=== PATIENT | male | born 1985 | race Caucasian/White ===

== ENCOUNTER 2022-09-01 10:22 | Outpatient (REF) | payer BC, SELFPAY ==
[2022-09-01 14:13] LABS: MANUAL DIFF FLAG NO
[2022-09-01 14:24] LABS: Basophils Percent Auto 0.5 % (0-2); Eosinophils Absolute Auto 0.2 X10*3/uL (0.0-0.4); Eosinophils Percent Auto 2.1 % (0-4); Hematocrit 44.4 % (42.0-52.0); Hemoglobin 15.1 g/dl (14.0-18.0); Imm Gran Abs Auto 0.03 X10*3/uL (0.00-0.03); Imm Gran Pct Auto 0.4 % (0.0-0.4); Lymphocytes Absolute Auto 1.4 X10*3/uL (1.2-4.9); Lymphocytes Percent Auto 17.1 % (20-40); Mean Corpuscular Hemoglobin 30.6 pg (27.0-33.0); Mean Corpuscular Volume 89.9 fL (80.0-98.0); Mean Platelet Volume 10.1 fL (9.4-12.4); Monocytes Absolute Auto 0.5 X10*3/uL (0.1-1.2); Monocytes Percent Auto 6.5 % (2-11); Neutrophils Percent Auto 73.4 % (45-73); Platelet Count 191 X10*3/uL (160-400); Red Blood Count 4.94 X10*6/uL (4.60-5.80); Red Cell Distribution Width 13.9 % (11.0-16.0); White Blood Count 8.1 X10*3/uL (4.8-10.8)
[2022-09-01 14:43] LABS: INTERNATIONAL NORM RATIO 0.9 (0.9-1.1); Prothrombin Time 9.8 SEC (10.0-13.1)
[2022-09-01 14:46] LABS: Partial Thromboplastin Time 28.6 SEC (26.0-36.4)
[2022-09-01 15:06] LABS: Erythrocyte Sedimentation Rate 8 MM/HR (0-15)
[2022-09-01 15:20] LABS: Folate 7.3 ng/mL (> or = 4.0); Vitamin B12 1030 pg/mL (200-900)
[2022-09-01 16:21] LABS: Alanine Aminotransferase 109 U/L (0-40); Albumin Level 4.8 g/dL (3.5-5.0); Alkaline Phosphatase 98 U/L (39-117); Amylase 102 U/L (28-100); Anion Gap 21 (12-20); Aspartate Amino Transferase 120 U/L (5-37); Bilirubin Direct 0.2 mg/dL (0.0-0.5); Bilirubin Total 0.5 mg/dL (0.0-1.0); Blood Urea Nitrogen 9 mg/dL (9-16); C Reactive Protein 0.54 mg/dL (< or = 0.50); Carbon Dioxide 21 mmol/L (22-29); Chloride 100 mmol/L (96-108); Estimated Glomerular Filt Rate > 60; Free T4 (Free Thyroxine) 0.78 ng/dL (0.71-1.85); Gamma Glutamyl Transpeptidase 235 U/L (11-51); Glucose Random 83 mg/dL (60-115); Lipase 21 U/L (8-78); Sodium 138 mmol/L (135-145); Thyroid Stimulating Hormone 0.91 uIU/mL (0.32-4.0); Vitamin D 25-OH Total 16.3 ng/mL (>30)
[2022-09-07 16:37] LABS: Vitamin B1 10 nmol/L (8-30)
== END 2022-09-01 10:23 | disposition home or self-care (01) ==
LOC: HO.MANLDS 10:22
PROVIDERS: Visit Provider Physician Assistant
DX: F41.1 Generalized anxiety disorder (principal); R17 Unspecified jaundice; H57.13 Ocular pain, bilateral
CPT/HCPCS: 36415; 80053; 82150; 82248; 82306; 82607; 82746; 82977; 83690; 84425; 84439; 84443; 85025; 85610; 85652; 85730; 86140

== ENCOUNTER 2022-12-04 08:30 | Outpatient (RCR) | payer BC, SELFPAY | END 2023-02-16 06:59 | disposition home or self-care (01) | LOC: HO.OT 08:30 | PROVIDERS: PCP Internal Medicine; Visit Provider Orthopaedic Surgery | DX: M77.22 Periarthritis, left wrist (principal) | CPT/HCPCS: 97033; 97110; 97140; 97165 ==

== ENCOUNTER 2023-02-23 13:53 | Outpatient (RCR) | payer BC, SELFPAY | END 2023-05-16 11:26 | disposition home or self-care (01) | LOC: HO.OT 13:53 | PROVIDERS: PCP Internal Medicine; Visit Provider Orthopaedic Surgery | DX: M12.532 Traumatic arthropathy, left wrist (principal); Z98.890 Other specified postprocedural states | CPT/HCPCS: 97110; 97166 ==

== ENCOUNTER 2023-05-28 09:43 | Outpatient (REF) | payer OTHER, SELFPAY ==
[2023-05-28 13:28] LABS: INTERNATIONAL NORM RATIO 0.9 (0.9-1.1); Prothrombin Time 10.6 SEC (11.1-13.3)
[2023-05-28 14:04] LABS: Alanine Aminotransferase 32 U/L (0-40); Albumin Level 4.5 g/dL (3.5-5.0); Alkaline Phosphatase 59 U/L (39-117); Amylase 109 U/L (28-100); Anion Gap 17 (12-20); Aspartate Amino Transferase 36 U/L (5-37); Bilirubin Total 0.3 mg/dL (0.0-1.0); Blood Urea Nitrogen 10 mg/dL (9-16); Calcium 9.9 mg/dL (8.4-10.2); Carbon Dioxide 22 mmol/L (22-29); Chloride 106 mmol/L (96-108); Estimated Glomerular Filt Rate > 60; Gamma Glutamyl Transpeptidase 118 U/L (11-51); Glucose Random 76 mg/dL (60-115); Sodium 141 mmol/L (135-145); Total Protein 7.6 g/dL (6.5-8.0)
[2023-06-02 10:28] LABS: Vitamin B1 15 nmol/L (8-30)
== END 2023-05-28 09:44 | disposition home or self-care (01) ==
LOC: HO.MANLDS 09:43
PROVIDERS: Visit Provider Physician Assistant
DX: F10.99 Alcohol use, unspecified with unspecified alcohol-induced disorder (principal)
CPT/HCPCS: 36415; 80053; 82150; 82977; 84425; 85610

== ENCOUNTER 2023-07-09 09:13 | Outpatient (REF) | payer OTHER, SELFPAY ==
--- NOTE | ~2023-07-09 | US_ITS ---
EXAMINATION: US ABDOMEN COMPLETE CLINICAL INFORMATION: Elevated LFTs. COMPARISON: None available. TECHNIQUE: Real-time imaging of the abdominal viscera. FINDINGS: PANCREAS: Head and body are unremarkable, tail is obscured. ABDOMINAL AORTA: The proximal, mid, and distal segments are normal in caliber. INFERIOR VENA CAVA: Visualized portions are normal. LIVER: Liver is enlarged measuring 18 cm in of diffusely increased echogenicity. No focal hepatic lesion. There is no intrahepatic biliary duct dilatation seen. GALLBLADDER: Normal. The gallbladder is physiologically distended without evidence of stones, sludge, polyps, wall thickening or pericholecystic fluid. COMMON BILE DUCT: Normal in caliber measuring 0.2 cm in diameter. RIGHT KIDNEY: Prominent renal pyramids. No hydronephrosis. No renal calculi or focal parenchymal lesions. The kidney measures 12.1 cm in maximum dimension. LEFT KIDNEY: Lobulated contour with prominent renal pyramids. No hydronephrosis. No renal calculi or focal parenchymal lesions. The kidney measures 12.0 cm in maximum dimension. SPLEEN: Normal. The spleen measures 10.8 cm in maximum dimension. FREE FLUID: None. US/US abdomen complete IMPRESSION: Enlarged fatty liver.
== END 2023-07-09 09:14 | disposition home or self-care (01) ==
LOC: HO.US 09:13
PROVIDERS: PCP Internal Medicine; Visit Provider Physician Assistant
DX: R74.01 Elevation of levels of liver transaminase levels (principal)
CPT/HCPCS: 76700

== ENCOUNTER 2023-08-13 08:15 | Emergency (ER) | payer OTHER, SELFPAY ==
--- NOTE | ~2023-08-13 | XR_ITS ---
EXAMINATION: XR WRIST, LEFT CLINICAL INFORMATION: Left wrist injury. COMPARISON: None available. TECHNIQUE: PA, lateral, oblique, and scaphoid views of the left wrist. FINDINGS: Postsurgical change consistent with resection of the scaphoid, lunate, and triquetral bones. Corticated ossification adjacent to the pisiform which appears chronic. No acute fracture or dislocation. No concerning lytic or blastic osseous lesion. Surgical maximilian adjacent to the distal radius. Circumferential soft tissue swelling. XR/XR wrist LT min 3V IMPRESSION: 1. Circumferential soft tissue swelling without acute fracture or dislocation. 2. Postsurgical change consistent with resection of the scaphoid, lunate, and triquetral bones.
[2023-08-13 08:34] VITALS: BP 146/72; PULSE 80; RESP 18; TEMP 36.7; O2SAT 96; BMI 25.8
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
[2023-08-13 10:33] LABS: MANUAL DIFF FLAG NO
[2023-08-13 10:34] LABS: Basophils Absolute Auto 0.1 X10*3/uL (0.0-0.2); Basophils Percent Auto 0.5 % (0-2); Eosinophils Absolute Auto 0.2 X10*3/uL (0.0-0.4); Eosinophils Percent Auto 1.5 % (0-4); Hematocrit 43.8 % (42.0-52.0); Hemoglobin 14.9 g/dl (14.0-18.0); Imm Gran Abs Auto 0.03 X10*3/uL (0.00-0.03); Imm Gran Pct Auto 0.3 % (0.0-0.4); Lymphocytes Absolute Auto 2.4 X10*3/uL (1.2-4.9); Mean Corpuscular Hemoglobin 30.8 pg (27.0-33.0); Mean Corpuscular Volume 90.7 fL (80.0-98.0); Mean Platelet Volume 9.4 fL (9.4-12.4); Monocytes Absolute Auto 0.8 X10*3/uL (0.1-1.2); Monocytes Percent Auto 7.7 % (2-11); Neutrophils Absolute Auto 6.9 x10*3/uL (2.0-8.3); Platelet Count 266 X10*3/uL (160-400); Red Blood Count 4.83 X10*6/uL (4.60-5.80); Red Cell Distribution Width 13.8 % (11.0-16.0); White Blood Count 10.3 X10*3/uL (4.8-10.8)
[2023-08-13 11:05] LABS: Anion Gap 18 (12-20); Blood Urea Nitrogen 13 mg/dL (9-16); C Reactive Protein 3.81 mg/dL (< or = 0.50); Calcium 10.1 mg/dL (8.4-10.2); Carbon Dioxide 23 mmol/L (22-29); Chloride 102 mmol/L (96-108); Estimated Glomerular Filt Rate > 60; Glucose Random 86 mg/dL (60-115); Potassium 4.2 mmol/L (3.3-5.1); Sodium 139 mmol/L (135-145)
[2023-08-13 11:14] LABS: Erythrocyte Sedimentation Rate 16 MM/HR (0-15)
== END 2023-08-13 11:36 | disposition home or self-care (01) ==
PROVIDERS: Registered Nurse Emergency; Emergency Provider Emergency Medicine; PCP Internal Medicine
DX: L03.114 Cellulitis of left upper limb (principal); M25.532 Pain in left wrist
CPT/HCPCS: 36415; 73110; 80048; 85025; 85652; 86140; 99283

== ENCOUNTER 2024-03-31 10:54 | Outpatient (REF) | payer OTHER, SELFPAY ==
[2024-03-31 12:22] LABS: Alanine Aminotransferase 181 U/L (0-40); Albumin Level 4.6 g/dL (3.5-5.0); Alkaline Phosphatase 96 U/L (39-117); Anion Gap 16 (12-20); Aspartate Amino Transferase 187 U/L (5-37); Bilirubin Total 0.4 mg/dL (0.0-1.0); Blood Urea Nitrogen 10 mg/dL (9-16); Calcium 9.9 mg/dL (8.4-10.2); Carbon Dioxide 26 mmol/L (22-29); Chloride 102 mmol/L (96-108); Cholesterol 286 mg/dL (<200); Estimated Glomerular Filt Rate > 60; Glucose Random 126 mg/dL (60-115); HDL Cholesterol 67 mg/dL (>40); LDL Cholesterol Calculated 198 mg/dL (<100); Sodium 140 mmol/L (135-145); Total Protein 7.8 g/dL (6.5-8.0); Triglycerides 107 mg/dL (<150)
[2024-03-31 12:52] LABS: HBS Num1 16.41 mIU/mL (0-7.99); HBc Num1 0.12 S/CO (0.00-0.79); HBsAGNum1 0.34 S/CO (0.00-0.99); Hepatitis B Core Antibody Nonreactive (Nonreactive); Hepatitis B Surface Antigen Negative (Negative); ~Hepatitis B Surface Antibody REACTIVE (Nonreactive)
[2024-04-01 15:23] LABS: HCV RNA PCR Qn <1.18 NOT DETECTED Log IU/mL (NOT DETECTED); HCV RNA PCR Qn <15 NOT DETECTED IU/mL (NOT DETECTED)
== END 2024-03-31 10:55 | disposition home or self-care (01) ==
LOC: HO.LAB 10:54
PROVIDERS: PCP Internal Medicine; Visit Provider Internal Medicine
DX: Z00.00 Encounter for general adult medical examination without abnormal findings (principal); F10.10 Alcohol abuse, uncomplicated; F32.9 Major depressive disorder, single episode, unspecified; G47.00 Insomnia, unspecified
CPT/HCPCS: 36415; 80053; 80061; 86704; 86706; 87340; 87522

== ENCOUNTER 2024-08-26 13:29 | Outpatient (AMB) | payer MEDICAID, SELFPAY ==
--- NOTE | 2024-08-26 14:06 | MHC.AM.SUB ---
Vital Signs 08/26/24 16:22 Weight 146 lb 4 oz Position Sitting Respiration 19 Pulse 99 Pulse Source Pulse Oximeter Pulse Oximetry (%) 98 Oxygen Delivery Method Room Air Intake Visit Reasons: Intake Allergies No Known Allergies Allergy (Verified 08/13/23 08:34) HPI HPI Intake: Details: Patient presents for evaluation and treatment of alcohol use disorder He reports he is drinking btwn 10-20 nips daily weaned over a week in July and stopped drinking for 6 days In terms of withdrawal sx., he reports tremor (while in treatment) diaphoresis vomiting every morning --settles after 3 nips Substance use history: -obtained by RN, reviewed with patient He started drinking at age 18 and at age 24, it became problematic. cocaine I buy a 20 here and there used 2x this month [place] Denies any injection use Treatment: -naltrexone (4 days ago). Does not like to take it when he is drinking because he becomes very flushed and my skin looks terrible -vivitrol injection last injection in June ([facility]) -[place] Denies medical admissions related to AUD reports fatty liver --elevated liver enzymes Sertraline 100mg QD MVI strong family history of alcohol goals: I don't want to be a slave to it anymore Review of Systems Const Reports as per HPI, Reports difficulty sleeping, Reports headache(s), Reports lethargy and Reports poor appetite ENT Reports headache(s) Neuro Reports headache(s) Psych Reports anxiety, Reports depression, Reports hopelessness, Reports irritability and Denies suicidal ideation Physical Exam Vital Signs: Last Vital Signs Pulse 99 08/26/24 16:22 Resp 19 08/26/24 16:22 Pulse Ox 98 08/26/24 16:22 Oxygen Delivery Method Room Air 08/26/24 16:22 Const General: cooperative, alert, awake and anxious Nutritional Appearance: average body habitus Orientation/consciousness: patient oriented x3 Limitations: no limitations Skin Other: face very red Neuro General: patient oriented x3 Psych Appearance: grossly normal Speech and movement: Pressured speech present Affect: Animated affect present and Anxious affect present Attitude: cooperative Thought process: Circumstantial thought process present Thought content: Normal thought content present Insight: Fair insight present (Psych) Judgement: Fair judgement present (Psych) Quality Reporting (2019) Depression/Bipolar (159/160/161/177) PHQ-9: Total score: 21 Assessment & Plan Assessment & Plan (1) Alcohol use disorder, severe, dependence: Code(s): F10.20 - Alcohol dependence, uncomplicated Category: Medical Plan: patient will start to decrease drinks as tolerated encouraged not to decrease by too many too fast to avoid worsening withdrawal sx encouraged to eat and drink water as much as possible follow up one week naltrexone on hold per patient request risk reduction related to cocaine --overdose prevention Orders: Orders AMB 14 Panel Urine Drug Screen 08/26/24 Z51.81 - Encounter for therapeutic drug level monitoring MAT Intake Nursing Intake Reason for visit: AUD Are you currently using?: Yes What are you taking?: Alcohol and occasionally cocaine When was your last use?: Drank this morning How much?: >20 nips a day What is your source of income?: Unemployed What is your current relationship status?: Lives with a girlfriend Current PCP: [facility] primary Date of last visit: January of this past year Referral Source: [facility] Details: Patient was looking for [facility] [place] who let him know he had to be detoxed prior to going there they reffered him to us. Substance Abuse History Substance Abuse History (includes route, frequency and quantity): Cocaine (states last use was 2-3 weeks ago) Social History Domestic Violence concerns: denies Children: Yes 2 biological and 1 step child Do you have a support system?: States his girlfriend who is also struggling with AUD Current mode of transportation?: Drives Where are you currently residing?: [place] LMP: N/A IV Drug Use Have you ever shared needles?: No Have you ever belonged to a needle exchange program?: No Do you buy needles at a pharmacy?: No Have you ever overdosed?: No Have you ever been hospitalized for an overdose?: No Was Naloxone administered?: Not applicable Recovery History Have you had any periods of recovery?: Yes What is your longest time in recovery?: 28 days while in recovery When was the last time you were in recovery?: Last November Have you ever had inpatient treatment for your substance abuse disorder?: Yes Have you been in an inpatient detoxification program?: Yes Have you been in an inpatient Rehab/[facility] house?: No Have you been in an outpatient Methadone Maintenance program?: No Have you been in an outpatient Suboxone Maintenance program?: No Have you been in an AA/NA support program?: No Have you had a Recovery Support Tear Down Man?: Yes Have you had Peer Support?: Yes Details: Kevin states I would love an older gentleman to guide me Behavioral Health History Do you have a current provider? If so, who?: No diagnosis: ADHD and Bipolar History of self harming thoughts?: No History of homicidal or suicidal intentions?: No Medical Conditions Do you have any chronic pain conditions?: States he had a surgical procedure on his left hand years ago that causes him both pain and depression Legal History Details: Patient did not disclose PHQ-9 Over the last 2 weeks, how often have you been bothered by any of the following problems? 1. Little interest or pleasure in doing things: nearly every day 2. Feeling down, depressed, or hopeless: nearly every day 3. Trouble falling or staying asleep, or sleeping too much: nearly every day 4. Feeling tired or having little energy: nearly every day 5. Poor appetite or overeating: nearly every day 6. Feeling bad about yourself - or that you are a failure or have let yourself or your family down: nearly every day 7. Trouble concentrating on things, such as reading the newspaper or watching television: nearly every day 8. Moving or speaking so slowly that other people could have noticed. Or the opposite - being so fidgety or restless that you have been moving around a lot more than usual: not at all 9. Thoughts that you would be better off or of hurting yourself in some way: not at all Total score: 21 Depression Screening Interpretation: Positive Depression Screening Done: Yes 43384 - PHQ-9 Billing: Yes Source: Developed by Drs. Franco Abdul, Ankita Fuchs, Dhaval Hewitt and colleagues, with an educational katt from [employer]. MELISSA-7 AMB Questionnaire MELISSA-7 Date MELISSA - 7 assessed: 08/26/24 Feeling nervous, anxious, or on edge: 3 = Nearly every day Not being able to stop or control worryin = Nearly every day Worrying too much about different things: 3 = Nearly every day Trouble relaxin = Nearly every day Being so restless that it is hard to sit still: 3 = Nearly every day Becoming easily annoyed or irritable: 3 = Nearly every day Feeling afraid as if something awful might happen: 0 = Not at all Total MELISSA-7 score (0-4 normal; 5-9 mild; 10-14 moderate; 15-21 severe): 18 Source: Developed by Drs. Franco Abdul, Ankita Fuchs, Dhaval Hewitt and colleagues, with an educational katt from [employer] MELISSA-7 Assessment Billing MELISSA-7 Assessment Tool: MELISSA-7 Assessment 17599
--- OUTSIDE RECORDS SUMMARY | 2024-08-26 15:46 | XMS_ITS | Data Portability ---
Author Organization [facility] Office Address [address] [facility] [address] [place] [address] Care Team Providers Care Food Consultant Name Role Phone SILVA MAIER Primary Care Provider [phone] Assessment No assessment recorded. Plan of Treatment Reminders Order Date Submit Date Provider Last Modified By Organization Details Last Modified Time Details Appointments None record ed. Lab None record ed. Referral None record ed. Procedures None record ed. Surgeries None record ed. Imaging None record ed. Medication Orders None record ed. Patient TargetsNo targets recorded. Patient Instructions Encounter Date Encounter Id Patient Instructions Last Modified By Organization Details Last Modified Time 05/07/2023 [id number] Educational materials are supplied regarding diagnoses & management Not available 05/07/2023 08:40:49 The findings, diagnosis, and options are discussed including potential treatments. I reviewed additional surgery options of denervation, wrist fusion and wrist arthroplasty. I advised against arthroplasty for him, discussed rationale and expectations. He favors plan for wrist denervation. All questions are answered. Follow up will be arranged with Dr. Lindquist He will call if problems or questions. Not available 05/07/2023 09:56:03 Reason for Referral None Reported. Procedures Surgical History Date Name Laterality Status Provider Name and Address Organization Details Recorded Time 2 Orthopaedic Surgery completed Genny ramos [facility] 05/07/2023 09:22:27 Imaging Results None recorded. Procedure Notes None recorded. Medical Equipment None Reported. Allergies No known drug allergies Medications Name Sig Start Date Stop Date Status Note LastModified by Organization Details LastModified Time sertraline active Not Available Not Av ailable Not Available Vitals Date Recorded Body height Body mass index (BMI) Body weight Provider Name and Address Organization Details Last Updated DateTime 05/07/2023 175.26 cm 25.8 kg/m2 83978.66 g Genny [facility] 05/07/2023 09:21:50 Social History None recorded. Functional Status None recorded. Mental Status None recorded. Family History Nothing Reported. 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 Chronic po stoperative pain 7847409063 03554 G89.28 Health Concerns Section Related Observation LastModified by Organization Detai ls LastModified Time None Recorded Concern Status LastModified by Organization Details LastModified Time None Recorded Advance Directives Directive None Recorded Payers Encounter Date Sequence Insurance Name Policy Number Policy Balbuena Covered Member ID Balbuena Member ID Guarantor Name 05/07/2023 1 MEDICAID-[place]: [facility] Shoaib Chatterjee III [id number] Shoaib Chatterjee Notes Date Note Type Note Provider Name and Address Organization Details Recorded Time 05/07/2023 text/html The patient is seen today for re evaluation of left wrist pain. Reported onset past year, noted diagnosis of prior wrist scaphoid injury and cyst. He has treated with Dr. Lindquist at [facility]. He underwent surgery 07/18/2022 for PRC and cyst excision. 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 No prior history of trauma is noted. Consultation is requested. AVRIL JEFFRIES MD [address] [place] [address], [place], [address], [facility] 05/07/2023 09:56:09
--- OUTSIDE RECORDS SUMMARY | 2024-08-26 15:46 | XMS_ITS | Continuity of Care Document ---
Author Organization [facility] Address [address] [place] [address] [address] [place] [address]- Care Team Providers Care Bicycle Racer Name Role Phone Robin Beatty DO Primary Care Physician Encounter [facility] Date(s): 07/21/24 - 08/20/24 [facility] [address] [place], [place] [address] Attending Physician: Admtr, [id number] Admitting Physician: AdmtrDejuan Referring Physician: Admtr, [id number] Encounter Type: Triage Allergies, Adverse Reactions, Alerts No Known Allergies Immunizations Given and Recorded Vaccine Date Status Refusal Reason SARS-CoV-2 (COVID-19) mRNA-1273 vaccine 01/05/21 G iven SARS-CoV-2 (COVID-19) mRNA-1273 vaccine 12/08/20 G iven Medications ascorbic acid-collagen 30 mg-833.33 mg oral tablet 3 tablet, By Mouth, Daily, # 120 tablet, 0 Refills, Maintenance, 07/31/23 1:07:00 PM EST, Tablet, Partial fill upon patient request if the prescription is for a schedule II opioid drug. Start Date: 07/31/23 Status: Ordered Quantity: 120.0 Unit: tablet Repeat number: 1 ibuprofen 800 mg oral tablet 800 mg, 1, tablet, By Mouth, 3 times a day, PRN, # 30 tablet, Refills 0, Maintenance, for pain, 07/31/23 1:05:00 PM EST, Partial fill upon patient request if the prescription is for a schedule II opioid drug. Start Date: 07/31/23 Status: Ordered Quantity: 30.0 Unit: tablet Repeat number: 1 sertraline 100 mg oral tablet 1 tablet = 100 mg, By Mouth, Daily, # 30 tablet, 0 Refills, Maintenance, 07/31/23 1:05:00 PM EST, Tablet, Partial fill upon patient request if the prescription is for a schedule II opioid drug. Start Date: 07/31/23 Status: Ordered Quantity: 30.0 Unit: tablet Repeat number: 1 Xanax 1 mg oral tablet 1 tablet = 1 mg, By Mouth, Every 8 hours, PRN as needed for anxiety, 0 Refills, Maintenance, 07/31/23 1:06:00 PM EST, Partial fill upon patient request if the prescription is for a schedule II opioiddrug. Start Date: 07/31/23 Status: Ordered Repeat number: 1 Social History Social History Type Response Smoking Status 10 or more cigarette s (1/2 pack or more)/day in last 30 days;Former smoker, quit more than 30 days ago entered on: 05/12/24 Sex Sex Representation Male (finding) Patient Care team information Care Team Personnel Name: Robin Beatty DO Position: Reference Physician Member Role: PCP Address: [address] [place] [address] Internal Medicine [place], [place] [address] Telecom: Care Team Related Persons Name: JIGNESH NG Insurance Providers Guarantor name: NED LITTLE [employer] Plan Information #: 1 Payer: [employer] Member Number: NA Policy Number: NA Group Number: [id number]
--- OUTSIDE RECORDS SUMMARY | 2024-08-26 15:46 | XMS_ITS | Continuity of Care Document ---
Author Organization [facility] Gavin pranay Address [address] [place] [address] [address] [place] [address]- Care Team Providers Care Farmworker Bulbs Name Role Phone Robin Beatty DO Primary Care Physician Encounter [facility] Date(s): 07/14/24 - 08/13/24 [facility] [address] [place] [id number] Encounter Type: Triage Allergies, Adverse Reactions, Alerts [...] Position: Reference Physician Member Role: PCP Address: [address] [place] [address] Internal Medicine [address] Telecom: Care Team Related Persons Name: JIGNESH NG Insurance Providers Guarantor name: NED YINILVA Tingz Plan Information #: 1 Payer: [facility] [employer] Member Number: NA Policy Number: NA Group Number: [id number]
[2024-08-26 16:22] VITALS: PULSE 99; RESP 19; O2SAT 98
== END 2024-08-26 14:48 | disposition home or self-care (01) ==
PROVIDERS: PCP Internal Medicine; Visit Provider Nurse Practitioner Psychiatric/Mental Health
DX: F10.20 Alcohol dependence, uncomplicated (principal)
CPT/HCPCS: 99204

== ENCOUNTER → 2024-08-26 13:29 | Outpatient (BNVA) | payer MEDICAID, SELFPAY | PROVIDERS: PCP Internal Medicine; Visit Provider Nurse Practitioner Psychiatric/Mental Health | DX: F10.20 Alcohol dependence, uncomplicated (principal) | CPT/HCPCS: 96127; 99212 ==

== ENCOUNTER → 2024-09-05 13:48 | Outpatient (BNVA) | payer MEDICAID, SELFPAY | PROVIDERS: PCP Internal Medicine ==

== ENCOUNTER 2024-09-11 15:27 | Outpatient (AMB) | payer MEDICAID, SELFPAY ==
--- NOTE | 2024-09-11 15:38 | A.OFFVISCC_ITS ---
Intake Visit Reasons: MAT Office Allergies No Known Allergies Allergy (Verified 08/13/23 08:34) HPI HPI MAT Office: Details: Patient presents for follow up for AUD Reports he has been working on cutting down amoutn of alcohol Some days he is able to drink less and others, he states, he drink as much as I can . His GF is currently in [address] facility and his goal is to be done drinking before she is discharged from there. Discussed strategies, challenged patient on some self deprecating statements, encouraged him to be gentler with himself during this process Discussed ATS admission and patients belief that he is unable to remain in a treatment facility for any amount of time After some time, he was able to articulate that this is largely due to increasing anxiety and racing thoughts that come with not having alcohol on board Review of Systems Const Reports as per HPI, Reports difficulty sleeping, Reports lethargy and Reports poor appetite (when drinking ) Psych Reports anxiety, Reports depression and Reports anhedonia Physical Exam Const General: cooperative, alert, awake and anxious Nutritional Appearance: average body habitus Orientation/consciousness: patient oriented x3 Limitations: no limitations Neuro General: patient oriented x3 Psych Appearance: grossly normal Speech and movement: Pressured speech present Affect: Animated affect present and Anxious affect present Attitude: cooperative Thought process: Circumstantial thought process present Thought content: Normal thought content present Insight: Fair insight present (Psych) Judgement: Fair judgement present (Psych) Assessment & Plan Assessment & Plan (1) Alcohol use disorder, severe, dependence: Code(s): F10.20 - Alcohol dependence, uncomplicated Category: Medical Plan: * patient agreeable to gabapentin PRN trial * risk reduction discussion * follow up one week Orders: Referrals Counseling Referral F10.20 - Alcohol dependence, uncomplicated Medications: New gabapentin 100 mg PO BID PRN 10 caps 0RF anxiety
--- OUTSIDE RECORDS SUMMARY | 2024-09-11 19:13 | XMS_ITS | Data Portability ---
Author Organization [facility] Home Service Address [address] [place] [address] Assessment No assessment recorded. Plan of Treatment Reminders Order Date Submit Date Provider Last Modified By Organization Details Last Modified Time Details Appointments None recorded. Lab CMP, serum or plasma 2022 023 [facility], [address] [place] [address], [id number], 3 08:18:45 vitamin B1 (thiamine) , blood 2022 023 [facility], [address] [place] [address], [address], 3 09:20:37 amylase + lipase, serum 2022 023 [facility], [address] [place] [address], [address], 3 11:30:54 PT/INR 2022 023 [facility], [address] [place] [address], [address], 3 08:14:54 gamma-glut amyl transferas e (ggt), serum 2022 023 [facility], [address] [place] [address], [address], 3 11:30:54 Referral None recorded. Procedures None recorded. Surgeries None recorded. Imaging US, liver 2022 023 [facility], [address] [place], [address], 08:26:11 Medication Orders alprazolam 1 mg tablet 2022 023 [facility] #[id number], [address] [place], [address], 11:25:53 quetiapine 50 mg tablet 2022 023 [facility][id number], [address] [place], [address], 15:24:04 sertraline 100 mg tablet 2022 023 [facility]0373, [address] [place], [address], 15:24:04 gabapentin 300 mg capsule 2022 023 [facility][id number], [address] [place], [address], 15:18:51 Patient TargetsNo targets recorded. Patient InstructionsNo instructions recorded. Reason for Referral None Reported. Results Created Date Observation Date Name Description Value Unit Range Abnormal Flag Note LastModifiedBy Organization Detail LastModifiedTime 04/24/2004/20/2023 MRI, wrist , w/o contr ast No observ ation record ed. [email or web address] [facility] [address] [facility], [place], [address], 04/24/2023 17:16:38 07/11/20 23 07/09/2023 US, liver No observ ation record ed. [address] (Medical Records) [address] [place], [address], 07/11/2023 09:35:21 08/13/19 24 08/13/2023 imagi ng/di agnos tic resul t No observ ation record ed. [address] [facility] (Medical Records) 575 [facility], [place], [address], 08/14/2023 08:39:17 Result Notes None recorded. Problems Name Problem SNOMED Code Status Onset Date Resolution Date Notes Provider Name and Address Organization Details Recorded Time Gastroeso phageal reflux disease 901385563 Active 2017 [facility] 8 08:53:44 Anxiety 16606635 Active 2017 [facility] [address], [address], [facility] 8 13:37:26 Major depressiv e disorder 570786925 Active 2017 [facility] [address], [address], [facility] 8 13:37:32 Granuloma annulare 85842448 Active 2019 TERRENCE BAXTER [address] [place] [address], [address], [facility] 0 09:43:05 Panic attack 553330151 Active 2021 TERRENCE BAXTER [address] [place] [address], [address], [facility] 2 10:52:19 COVID-19 144921523 Active 2021 TERRENCE BAXTER [address] [place] [address], [address], [facility] 2 14:20:44 Jaundice 97317596 Active 2022 TERRENCE BAXTER [address] [place] [address], [address], [facility] 3 09:59:52 Pain of bilateral eyes 435732257870 109 Active 2022 TERRENCE BAXTER [address] [place] [address], [address], [facility] 3 10:02:06 Insomnia 832708426 Active 2022 TERRENCE BAXTER [address] [place] [address], [address], [facility] 3 10:03:55 Liver enzymes level above reference range 251762128 Active 2022 TERRENCE BAXTER [address] [place] [address], [address], [facility] 3 10:24:32 Depressiv e disorder 26614788 Active 2022 TERRENCE BAXTER [address] [place] [address], [address], [facility] 3 14:31:08 Alcohol dependenc e 54093791 Active 2022 TERRENCE BAXTER [address] [place] [address], [address], [facility] 3 14:35:35 Tremor 42974936 Active 2022 TERRENCE BAXTER [address] [place] [address], [address], [facility] 3 14:36:04 Pain of left wrist 918254391700 102 Active 2022 TERRENCE BAXTER [address] [place] [address], [address], [facility] 3 15:37:48 Alcohol abuse 08372198 Active 2022 TERRENCE BAXTER [address] [place] [address], [address], [facility] 3 13:54:14 Pain in wrist 93044737 Active 2022 TERRENCE BAXTER [address] [place] [address], [address], [facility] 3 14:39:25 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 Procedures Surgical History None recorded. Imaging Results Imaging Date Name Status LastModified by Organiz ation Details LastModified Time 04/20/2023 MRI, wrist, w/o contrast completed [facility] [address], [address], 04/24/2023 17:16:38 07/09/2023 US, liver completed [address] (Medical Records) [address] [place] [address], [address], 07/11/2023 09:35:21 08/13/2023 imaging/diagn ostic result completed [address] (Medical Records) [address] [place] [address], [address], 08/14/2023 08:39:17 Procedure Notes None recorded. Medical Equipment None Reported. Allergies Allergen ID Allergen Name Allergen Category Reaction Reaction Severity Criticality Documentation Date Start Date Code Code System Note Provider Name and Address Organization Details Recorded Time 5344 duloxetin e medicatio n dizziness severe Not available 08/31/2021 54501 RxNorm TERRENCE BAXTER [address] [place], [address], [facility] 2 14:42:41 Medications Name Sig Start Date Stop Date Status Note LastModified by Organization Details LastModified Time cefuroxime axetil 250 mg tablet Take 1 tablet every 12 hours by oral route. 07/26 completed Not Available Not Available Not Available trazodone 50 mg tablet Take 1 tablet every day by oral route for 90 days. 11/22 completed Not Available Not Available Not Available azithromyci n 250 mg tablet TAKE 2 TABLETS BY MOUTH TODAY, THEN TAKE 1 TABLET DAILY FOR 4 DAYS 08/08 completed Not Available Not Available Not Available ibuprofen 800 mg tablet TAKE 1 TABLET 3 TIMES A DAY BY ORAL ROUTE WITH MEALS FOR 14 DAYS. active Not Available Not Available No t Available alprazolam 1 mg tablet TAKE 1 TABLET BY MOUTH TWICE A DAY NEEDED active Not Available Not Available No t Available valacyclovi r 1 gram tablet TAKE 1 TABLET BY MOUTH EVERY 12 HOURS FOR 7 DAYS 12/17 completed Not Available Not Available Not Available naltrexone 50 mg tablet TAKE 1 TABLET BY MOUTH EVERY DAY 01/05 completed Not Available Not Available Not Available sertraline 100 mg tablet TAKE 1 TABLET BY MOUTH EVERY DAY active Not Available Not Available No t Available penicillin V potassium 500 mg tablet 05/07 completed Not Available Not Available Not Available sulfamethox azole 800 mg-trimetho prim 160 mg tablet 05/07 completed Not Available Not Available Not Available tramadol 50 mg tablet 05/07 completed Not Available Not Available Not Available lorazepam 0.5 mg tablet TAKE 1 TABLET BY MOUTH THREE TIMES A DAY NEEDED FOR 7 DAYS 11/22 completed - Hasn' t had in a long time Not Available Not Available Not Available chlordiazep oxide 25 mg capsule TAKE 2 CAPSULES EVERY DAY BY ORAL ROUTE FOR 14 DAYS. 03/27 completed Not Available Not Available Not Available betamethaso ne valerate 0.1 % topical cream APPLY A THIN LAYER TO THE AFFECTED AREA(S) BY TOPICAL ROUTE ONCE DAILY 08/31 completed Not Available Not Available Not Available cephalexin 500 mg capsule TAKE 1 CAPSULE BY MOUTH 4 TIMES A DAY FOR 7 DAYS active Not Available Not Available No t Available buspirone 10 mg tablet Take 1 tablet every day by oral route for 90 days. 11/22 completed Not Available Not Available Not Available mometasone 50 mcg/actuati on nasal spray 05/07 completed Not Available Not Available Not Available gabapentin 300 mg capsule Take 1 capsule every day by oral route for 30 days. 2022 active Not Available Not Available Not Avai lable sertraline 25 mg tablet TAKE 1 TABLET BY MOUTH EVERY DAY 05/09 completed Not Available Not Available Not Available azelastine 137 mcg (0.1 %) nasal spray 08/04 completed Not Available Not Available Not Available zolpidem 10 mg tablet TAKE 1 TABLET BY MOUTH EVERY DAY 01/05 completed Not Available Not Available Not Available methylpredn isolone 4 mg tablets in a dose pack TAKE 6 TABLETS ON DAY 1 DIRECTED ON PACKAGE AND DECREASE BY 1 TAB EACH DAY FOR A TOTAL OF 6 DAYS 08/08 completed Not Available Not Available Not Available albuterol sulfate HFA 90 mcg/actuati on aerosol inhaler INHALE 2 PUFFS EVERY 4 HOURS BY INHALATIO N ROUTE. active Not Available Not Available No t Available betamethaso ne dipropionat e 0.05 % topical ointment APPLY SPARINGLY TO AFFECTED AREA EVERY DAY 12/17 completed Not Available Not Available Not Available sertraline 50 mg tablet TAKE 1 TABLET BY MOUTH EVERY DAY 2023 active Not Available Not Available Not Avai lable doxycycline hyclate 100 mg tablet TAKE 1 TABLET BY MOUTH TWICE A DAY FOR 10 DAYS 08/08 completed Not Available Not Available Not Available buspirone 15 mg tablet TAKE 1 TABLET BY MOUTH TWICE DAILY 01/05 completed Not Available Not Available Not Available oxycodone 5 mg tablet TAKE 1 TABLET BY MOUTH EVERY 6 HOURS NEEDED FOR PAIN active Not Available Not Available No t Available mirtazapine 7.5 mg tablet TAKE 1 TABLET BY MOUTH EVERY DAY 01/05 completed Not Available Not Available Not Available duloxetine 30 mg capsule,del ayed release Take 1 capsule every day by oral route for 30 days. active Not Available Not Available No t Available quetiapine 50 mg tablet TAKE 1 TABLET BY MOUTH EVERY DAY active Not Available Not Available No t Available levocetiriz ine 5 mg tablet 05/07 completed Not Available Not Available Not Available Vitals Date Recorded Body height Body mass index (BMI) Body weight Heart rate Oxygen saturation Oxygen saturation in Arterial blood by Pulse oximetry Systolic blood pressure Diastolic blood pressure Provider Name and Address Organization Details Last Updated DateTime 3 175.26 cm 26.5 kg/m2 61718.1 1 g 77 /min 97 % 97 % 172 mm[Hg] 92 mm[Hg] TERRENCE BAXTER [address] [place], [address], [facility] 3 14:54:36 Date Recorded Body height Body mass index (BMI) Body weight Heart rate Oxygen saturation Oxygen saturation in Arterial blood by Pulse oximetry Systolic blood pressure Diastolic blood pressure Provider Name and Address Organization Details Last Updated DateTime 3 175.26 cm 25.7 kg/m2 04838.0 7 g 100 /min 98 % 98 % 140 mm[Hg] 85 mm[Hg] Pattijohnny Romankes [facility] Internal [facility] 3 11:05:10 Date Recorded Body height Body mass index (BMI) Body weight Heart rate Oxygen saturation Oxygen saturation in Arterial blood by Pulse oximetry Systolic blood pressure Diastolic blood pressure Provider Name and Address Organization Details Last Updated DateTime 3 175.26 cm 25.8 kg/m2 85047.6 6 g 87 /min 98 % 98 % 120 mm[Hg] 74 mm[Hg] Paulina Rowe [facility] 3 14:54:16 Social History Question Answer Notes LastModified by Organizat ion Details LastModified Time Tobacco Smoking Status Former Smoker Pattijohnny Romankes [facility] 05/09/2023 11:03:24 What Was The Date Of Your Most Recent Tobacco Screening? 06/01/2023 [email or web address] Information not available 06/01/2023 Sex: Unknown Functional Status None recorded. Mental Status None recorded. Family History Nothing Reported. Medical History No medical history recorded. Immunizations Vaccine Type Date Status Note Provider Nam e and Address Organization Details Recorded Time Influenza, split virus, quadrivalent, preservative 0 completed Tonya ordaz [facility] 08/04/2020 09:48:47 COVID-19, mRNA, LNP-S, PF, 100 mcg/0.5mL dose or 50 mcg/0.25mL dose 1 completed Lisa Carson [facility] 12/17/2020 08:56:58 Past Encounters Encounter ID Performer Location Encounter Start Date Encounter Closed Date Diagnosis/Indication Diagnosis SNOMED-CT Code Diagnosis ICD10 Code Diagnosis Note [id number] Hansa Walker NP, S [facility] [address] [facility],[place] [address] 05/07/2018 14:38:59 05/08/2018 08:47:04 Acute sinusitis 96658819 J01.90 [id number] [facility] [address] [facility],[place] [address] 07/26/2018 13:16:14 07/26/2018 14:01:22 Anxiety 82392797 F41.9 Depressive disorder 3548 9007 F33.9 will do 25 mg x 7 days then incrase to 50 thereafter . will continue for 8 weeks and then f/u. 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 pt will call at the 4 week point if he would like to make that dose increase. [id number] Chiqui [facility] Internal [facility] [address] [facility],[place] [address] 09/27/2018 16:09:58 09/27/2018 16:47:49 Depressive disorder 53692233 F33.9 will trial an increase in the dose of zoloft will consider dose increase right before insurance runs out if the 100 mg dose doesn't seem adequate Anxiety 65377271 F41.9 as above Gastroesop hageal reflux disease 313616509 K21.9 no meds, sometimes tums as needed [id number] TERRENCE BAXTER [facility] [address] [place] [address],[place] [address] 05/03/2020 11:23:35 05/03/2020 15:09:13 Acute pharyngitis 836551667 J02.9 will treat for probable strep throat [id number] TERRENCE BAXTER [facility] [address] [place] [address],[place] [address] 08/04/2020 09:22:43 08/04/2020 10:03:57 Carpal tunnel syndrome of left wrist 5917038442 99038 G56.02 will set up with ortho for eval of both medial epicondyli tis and carpal tunnel Medial epi condylitis of left elbow joint 0158955031 33826 M77.02 as above Herpes labialis 7617318 B00.1 instructed patient how to use when he has an outbreak Granuloma annulare 04393 009 L92.0 will trial steriod cream to see if effective [id number] TERRENCE BAXTER [facility] [address] [facility] [address],[place] [address] 12/17/2020 08:48:18 12/17/2020 09:39:19 Active or passive immunization 957647675 Z23 advised Adult heal th examination 430033111 Z00.00 due for BW will recheck BP at next appt told patient to work on his drinking Anxiety 88807659 F41.9 will trial medication Contact dermatitis 61013 004 L25.9 due metal allergy [id number] TERRENCE BAXTER [facility] [address] [facility] [address],[place] [address] 08/31/2021 08:11:18 09/02/2021 13:18:19 Depressive disorder 70321774 F33.9 will call back in 2 to 3 weeks with update [id number] TERRENCE BAXTER [facility] [address] [facility] [address],[place] [address] 09/01/2022 09:40:39 09/01/2022 12:16:52 Anxiety 16692621 F41.1 will adjust his medication Jaundice 34854653 R17 will set up with lab work Pain of bi lateral eyes 5571575013 05752 H57.13 will set up with optho Insomnia 579531953 G47.0 9 will set up with trazodone 50 mg for a trial run [id number] TERRENCE BAXTER [facility] [address] [facility] [address],[place] [address] 09/15/2022 08:25:45 09/15/2022 16:27:44 Liver enzymes level above reference range 347398563 R74.01 will monitor Anxiety 31823294 F41.1 will adjust his medication Major depr essive disorder 478133268 F32.0 will continue with current medication s Insomnia 633786391 G47.0 9 will set up with trazodone 50 mg for a trial run [id number] TERRENCE BAXTER [facility] [address] [facility] [address],[place] [address] 11/22/2022 13:49:48 11/22/2022 14:55:29 Panic attack 436527849 F41.0 discussed mood Depressive disorder 8748 9007 F33.9 will adjust mirtazapin e Insomnia 739569866 G47.0 9 no effect with trazodonea greed to switch medication Alcohol dependence 94948 003 F10.288 never got [facility] recheck labsno guarantee that if patient is reschedule d he will do to appt Tremor 77155535 G25.2 will recheck labscontin umaciel to have tremorsmay need MRI scan to see if he has any nerve damage due to alcohol use [id number] TERRENCE BAXTER [facility] [address] [facility] [address],[place] [address] 01/05/2023 13:41:25 01/05/2023 14:12:32 Alcohol abuse 71412540 F10.99 agreed to chlordiaze poxide trial for the withdrawal Anxiety 98175678 F41.1 will adjust his medication [id number] TERRENCE BAXTER [facility] [address] [facility] [address],[place] [address] 03/27/2023 13:49:03 03/27/2023 15:07:43 Alcohol abuse 34419861 F10.99 agreed to chlordiaze poxide trial for the withdrawal Gastroesop hageal reflux disease 880212042 K21.9 stable Panic attack 288947506 F 41.0 discussed mood Severe rec urrent major depression without psychotic features 42847464 F33.2 will start on seroquel with an increased to 150 mg of sertraline Dyspnea 834124378 R06.02 will start on albuterol Insomnia 208161463 G47.0 9 no effect with trazodonea greed to switch medication [id number] TERRENCE BAXTER [facility] [address] [facility] [address],[place] [address] 04/03/2023 14:17:11 04/03/2023 15:52:58 Alcohol abuse 99389677 F10.99 agreed to chlordiaze poxide trial for the withdrawal Panic attack 430747555 F 41.0 discussed mood Insomnia 041030111 G47.0 9 adjusted medhasn't started it yet Alcohol dependence 36790 003 F10.288 doing okay [id number] TERRENCE BAXTER [facility] [address] [facility] [address],[place] [facility] [email or web address] [address] 04/11/2023 08:58:53 04/13/2023 15:35:52 Alcohol abuse 86797411 F10.99 agreed to chlordiaze poxide trial for the withdrawal Panic attack 437795204 F 41.0 discussed mood Anxiety 45181049 F41.1 will adjust his medication Depressive disorder 3548 9007 F33.9 will adjust mirtazapin e [id number] TERRENCE BAXTER [facility] [address] [facility] [address],[place] [address] 05/09/2023 10:55:39 05/09/2023 12:00:15 Alcohol abuse 42110026 F10.99 agreed to chlordiaze poxide trial for the withdrawal Alcohol dependence 14826 003 F10.288 going to rehab Insomnia 426800553 G47.0 9 cont at rehab Jaundice 76332279 R17 will set up with lab work [id number] TERRENCE BAXTER [facility] [address] [facility] [address],[place] [address] 06/01/2023 14:44:29 06/01/2023 15:45:55 Alcohol abuse 54036059 F10.99 stablework ing on cutting out alcoholonl y drank once this week working on getting him to stop completely 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 with business case analyst Alcohol dependence 14444 003 F10.288 working with rehab and business case analyst Alcoholic hepatitis 8876 11615 K70.10 AST, ALT, GGT, ALK PHOS > dropped down to closer range Liver enzy mes level above reference range 790450901 R74.01 will monitor his levels Pain of left wrist 22503 72241 87476 M25.532 will try a course of gabapentin and see if his levels improves Severe rec urrent major depression without psychotic features 73454247 F33.2 will start on seroquel with an increased to 150 mg of sertraline Anxiety 33194971 F41.1 will adjust his medication [id number] TERRENCE BAXTER [facility] [address] [facility],[place] [address] 09/05/2023 10:54:22 09/05/2023 16:28:40 Health Concerns Section Related Observation LastModified by Organization Detai ls LastModified Time None Recorded Concern Status LastModified by Organization Details LastModified Time None Recorded Advance Directives Directive None Recorded Payers Encounter Date Sequence Insurance Name Policy Number Policy Balbuena Covered Member ID Balbuena Member ID Guarantor Name 04/03/2023 1 [place] [id number] Shoaib Chatterjee [id number] Shoaib Chatterjee 04/11/2023 1 [place] [id number] Shoaib Chatterjee [id number] Shoaib Chatterjee 05/09/2023 1 [place] [id number] Shoaib Chatterjee [id number] Shoaib Chatterjee 06/01/2023 1 [employer] [employer] - DIRECT CONNECTORCARE TYPE I (HMO) [id number] Shoaib Chatterjee III [id number] Shoaib Chatterjee 09/05/2023 1 [employer] - DIRECT CONNECTORCARE TYPE I (HMO) [id number] Shoaib Chatterjee III [id number] Shoaib Chatterjee Notes Date Note Type Note Provider Name a nd Address Organization Details Recorded Time 3 text/html f/u one week panic attacks: didn't start the medication alcohol abuse: hasn't drank as much this week insomnia: sleeping a bit better depression: discussed starting his meds I added last week discussed appealing disabilitylisted this office instead of his surgeon's office TERRENCE BAXTER [address] [facility], [place], [address], [facility] 04/03/2023 15:20:04 3 text/html f/u prior to rehab alcohol abuse: has set himself with rehab [place] will be starting in a week wanted to discuss his medication and mental health to be documented for the rehab center the patient is now getting worse with his alcohol usehas SI, feels some days he wants to end his life, no concrete plan alcohol dependence: still drinking excessively TERRENCE BAXTER [address] [place], [address], [facility] 05/09/2023 11:33:24 3 text/html f/u labs the patient is still having pain in his left wristthe patient reports that he has a follow up with his surgeon next Sundaythe injections did not workwill discuss alternatives will try a course of gabapentin for the nerve and wrist pain will also monitor his level TERRENCE BAXTER [address] [place], [address], [facility] 06/01/2023 15:24:10
--- OUTSIDE RECORDS SUMMARY | 2024-09-11 19:13 | XMS_ITS | Clinical Summary ---
Author Organization [facility] Address [address] [place] [address] Care Team Providers Care Solar Energy Technician Name Role Phone Unavailable Primary Care Provider Unavailabl e Surgical History Surgery Date Site/Laterality Comments OTHER SURGICAL HISTORY PROCEDURE: DENIES PREVIOUS SURGERY Medical History Medical History Date Comments 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 Family History Medical History Relation Name Comments Other: [id number] Other 1 Both parents a live and well Relation Name Status Comments Father Alive healthy Mother Alive healthy Other 1 Other 2 Paternal Grandfather Alive HTN Social History Tobacco Use Types Packs/Day Years Used Date Smoking Tobacco: Every Day Cigarettes Smokeless Tobacco: Never Alcohol Use Standard Drinks/Week Comments Yes 0 (1 standard drink = 0.6 oz pur e alcohol) Sex and Gender Information Value Date Recorded Sex Assigned at Not on file Gender Identity Not on file Sexual Orientation Not on file Obstetrics History Plan of Treatment Health Maintenance Due Date Last Done Comments Pneumococcal Vaccine: Pediat rics (0 to 5 Years) and At-Risk Patients (6 to 64 Years) (1 of 2 - PCV) 1993 Hepatitis A Vaccines (1 of 2 - Risk 2-dose series) 2006 Hepatitis B Vaccines (1 of 3 - 19+ 3-dose series) 2006 DTaP,Tdap,and Td Vaccines (2 - Td or Tdap) 12/16/2019 12/15/2009 COVID-19 Vaccine ( - 2023-2 5 season) 2024 Influenza Vaccine (#1) 2024 Cholesterol Screening (Lipid Panel) 06/06/2024 Depression Screening 06/06/2024 HIV Screening 06/06/2024 Hepatitis C Screening 06/06/2024 Social Influencers of Health Screening 06/06/2024 HIB Vaccines Aged Out No longer eligi ble based on patient's age to complete this topic HPV Vaccines Aged Out No longer eligi ble based on patient's age to complete this topic IPV Vaccines Aged Out No longer eligi ble based on patient's age to complete this topic MMR Vaccines Aged Out No longer eligi ble based on patient's age to complete this topic Meningococcal ACWY Vaccine Aged Out N o longer eligible based on patient's age to complete this topic RSV Immunization Patients Un wily 20 months Aged Out No longer eligible b ased on patient's age to complete this topic Varicella Vaccines Aged Out No longer eligible based on patient's age to complete this topic
--- OUTSIDE RECORDS SUMMARY | 2024-09-11 19:13 | XMS_ITS | Data Portability ---
Author Organization [facility] Address [address] [place] [address] Care Team Providers Care Home Improvement Installer Name Role Phone SILVA MAIER Primary Care Provider Assessment No assessment recorded. Plan of Treatment [...] By Organization Details Last Modified Time 05/07/2023 [id number] Educational materials are supplied regarding diagnoses & [...] Time 2 Orthopaedic Surgery completed Genny ramos [facility] 05/07/2023 09:22:27 Imaging Results None recorded. Procedure Notes None recorded. Medical Equipment None Reported. Allergies No known drug allergies Medications Name Sig Start Date Stop Date Status Note LastModified by Organization Details LastModified Time sertraline active Not Available Not Av ailable Not Available Vitals Date Recorded Body height Provider Name an d Address Organization Details Last Updated DateTime 05/07/2023 175.26 cm Genny Valderrama [facility] 05/07/2023 09:21:46 Date Recorded Body mass index (BMI) Body weight Provider Name and Address Organization Details Last Updated DateTime 05/07/2023 25.8 kg/m2 43768.66 g Genny Valderrama [facility] 05/07/2023 09:21:50 Social History None recorded. Functional Status None recorded. Mental Status None recorded. Family History Nothing Reported. 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 Chronic po stoperative pain 1680266230 55433 G89.28 Health Concerns Section Related Observation LastModified by Organization Detai ls LastModified Time None Recorded Concern Status LastModified by Organization Details LastModified Time None Recorded Advance Directives Directive None Recorded Payers Encounter Date Sequence Insurance Name Policy Number Policy Balbuena Covered Member ID Balbuena Member ID Guarantor Name 05/07/2023 1 [place] [facility] Shoaib Chatterjee III [id number] Shoaib Chatterjee Notes Date Note Type Note Provider Name and Address Organization Details Recorded Time 05/07/2023 text/html The patient is seen today for re evaluation of left wrist pain. Reported onset past year, noted diagnosis of prior wrist scaphoid injury and cyst. He has treated with Dr. Lindquist at [facility]. He underwent surgery 07/18/2022 for PRC and cyst excision. 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 No prior history of trauma is noted. Consultation is requested. AVRIL JEFFRIES MD [address] [place] [address], [phone], [facility] 05/07/2023 09:56:09
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
--- OUTSIDE RECORDS SUMMARY | 2024-09-11 19:14 | XMS_ITS | Data Portability ---
Author Organization [facility], [address] Address [address] [place] [address] Assessment Encounter Date Assessment Date Assessment LastModified by Organization Details LastModified Time 12/03/2023 12/03/2023 you are being treated for a rash Please take medication prescribed monitor skin for any worsening symptoms Please return to UC or ER if sx are not getting better or are getting worse ronnancy Not available 12/03/2023 14:14:22 Plan of Treatment Reminders Order Date Submit Date Provider Last Modified By Organization Details Last Modified Time Details Appointments None recorded. Lab None recorded. Referral None recorded. Procedures None recorded. Surgeries None recorded. Imaging None recorded. Medication Orders prednisone 50 mg tablet 2023 024 [id number], [address] [place], [address], 12:34:29 famotidine 40 mg tablet 2023 024 [id number], [address] [place], [address], 12:34:30 triamcinolo ne acetonide 0.1 % topical cream 2023 024 [id number], [address] [place], [address], 12:34:31 Patient TargetsNo targets recorded. Patient Instructions Encounter Date Encounter Id Patient Instructions Last Modified By Organization Details Last Modified Time 12/03/2023 [id number] allergic reaction: care instructions annalee Not available 12/03/2023 12:34:27 dermatitis: care instructions annalee Not available 12/03/2023 12:34:27 Reason for Referral None Reported. Problems Name Problem SNOMED Code Status Onset Date Resolution Date Notes Provider Name and Address Organization Details Recorded Time Alcoholism 2683085 Active 024 Courtney Banerjee null, [place] - [facility] 4 10:46:23 Depressive disorder 42044098 Active 024 Mindy ordaz, PA - [facility] 4 11:56:42 Anxiety 08658316 Active 024 Mindy ordaz, PA - [facility] 4 11:56:49 Pruritic rash 94543172 Active 024 NIKUNJ GORDON NP [address] , [place], [address], [place] - [facility] 4 12:25:50 Contact dermatitis 61263170 Active 024 NIKUNJ GORDON NP [address] , [facility] [place], [address], [place] - [facility] 4 12:28:35 Problem Notes None recorded. Procedures Surgical History Date Name Laterality Status Provider Name and Address Organization Details Recorded Time 08/13/2020 Wrist arthroscopy /surgery completed Mindy Villegas PA - [facility] 12/03/2023 11:57:31 Imaging Results None recorded. Procedure Notes None recorded. Medical Equipment None Reported. Allergies No known drug allergies Medications Name Sig Start Date Stop Date Status Note LastModified by Organization Details LastModified Time ibuprofen 800 mg tablet TAKE 1 TABLET 3 TIMES A DAY BY ORAL ROUTE WITH MEALS FOR 14 DAYS. 12/02 completed Not Available Not Available Not Available alprazolam 1 mg tablet TAKE 1 TABLET BY MOUTH TWICE A DAY NEEDED 12/02 completed Not Available Not Available Not Available naltrexone 50 mg tablet active Not Available Not Available Not Available famotidine 40 mg tablet TAKE 1 TABLET BY MOUTH EVERY DAY FOR 10 DAYS active Not Available Not Available No t Available sertraline 100 mg tablet TAKE 1 TABLET BY MOUTH EVERY DAY active Not Available Not Available No t Available hydroxyzine HCl 50 mg tablet TAKE 1 TABLET BY MOUTH EVERYDAY AT BEDTIME 12/02 completed Not Available Not Available Not Available triamcinolo ne acetonide 0.1 % topical cream APPLY THIN COAT TO AFFECTED AREA TWICE A DAY active Not Available Not Available No t Available chlordiazep oxide 25 mg capsule TAKE 2 CAPSULES EVERY DAY BY ORAL ROUTE FOR 14 DAYS. 12/02 completed Not Available Not Available Not Available cephalexin 500 mg capsule TAKE 1 CAPSULE BY MOUTH 4 TIMES A DAY FOR 7 DAYS 12/02 completed Not Available Not Available Not Available prednisone 50 mg tablet TAKE 1 TABLET BY MOUTH EVERY DAY FOR 5 DAYS active Not Available Not Available No t Available sertraline 25 mg tablet TAKE 1 TABLET BY MOUTH EVERY DAY 12/02 completed Not Available Not Available Not Available albuterol sulfate HFA 90 mcg/actuati on aerosol inhaler INHALE 2 PUFFS EVERY 4 HOURS BY INHALATIO N ROUTE. 12/02 completed Not Available Not Available Not Available sertraline 50 mg tablet TAKE 1 TABLET BY MOUTH EVERY DAY 12/02 completed Not Available Not Available Not Available oxycodone 5 mg tablet TAKE 1 TABLET BY MOUTH EVERY 6 HOURS NEEDED FOR PAIN 12/02 completed Not Available Not Available Not Available Benadryl active Not Available Not Avai lable Not Available Vivitrol 380 mg intramuscul ar suspension, extended release Inject 4 mL every 4 weeks by intramusc ular route. active Not Available Not Available No t Available quetiapine 50 mg tablet TAKE 1 TABLET BY MOUTH EVERY DAY 12/02 completed Not Available Not Available Not Available multivit 37-iron 27 mg-Lmfolate 1.13 mg-algaloil ,soy 581.92 mg capsule Take by oral route. active Not Available Not Available No t Available naloxone 4 mg/actuatio n nasal spray active Not Available Not Available Not Available Vitals Date Recorded Body height Provider Name an d Address Organization Details Last Updated DateTime 12/03/2023 175.26 cm Mindy OCAMPO - [facility] 12/03/2023 11:48:16 Date Recorded Body mass index (BMI) Body weight Provider Name and Address Organization Details Last Updated DateTime 12/03/2023 24.8 kg/m2 20927.52 g Mindy OCAMPO - [facility] 12/03/2023 11:48:48 Date Recorded Oxygen saturation Oxygen saturation in Arterial blood by Pulse oximetry Provider Name and Address Organization Details Last Updated DateTime 12/03/2023 98 % 98 % Mindy Villegas PA - [facility] 12/03/2023 11:49:55 Date Recorded Heart rate Provider Name an d Address Organization Details Last Updated DateTime 12/03/2023 73 /min Mindy Bakari PA - [facility] 12/03/2023 11:50:01 Date Recorded Systolic blood pressure Diastolic blood pressure Provider Name and Address Organization Details Last Updated DateTime 12/03/2023 155 mm[Hg] 79 mm[Hg] Mindy Bakari PA - [facility] 12/03/2023 11:49:50 Social History Question Answer Notes LastModified by Organizat ion Details LastModified Time What Is Your Level Of Alcohol Consumption? Heavy marchambo Information not available 12/03/2023 What Is Your [facility] Status? [facility] Information not available 12/03/2023 Sex: Unknown Functional Status None recorded. Mental Status None recorded. Family History Relationship Description Onset Age of this Age Resolved Age Notes LastModified by Organization Details LastModified Time Father No current problems or disability [facility] Not available 12/02 11:56:53 Mother No current problems or disability [facility] Not available 12/02 11:56:53 Medical History No medical history recorded. Past Encounters Encounter ID Performer Location Encounter Start Date Encounter Closed Date Diagnosis/Indication Diagnosis SNOMED-CT Code Diagnosis ICD10 Code Diagnosis Note [id number] [address] [address] 01/20/2020 18:51:23 01/20/2020 19:20:49 [id number] NIKUNJ GORDON NP [address] [facility] [address] [address] 12/03/2023 11:33:30 12/03/2023 12:37:58 Pruritic rash 26772863 L28.2 Contact dermatitis 85680 004 L25.9 Health Concerns Section Related Observation LastModified by Organization Detai ls LastModified Time None Recorded Concern Status LastModified by Organization Details LastModified Time None Recorded Advance Directives Directive None Recorded Payers Encounter Date Sequence Insurance Name Policy Number Policy Balbuena Covered Member ID Balbuena Member ID Guarantor Name 01/20/2020 1 [place] [place] [id number] Shoaib Cox Chatterjee [id number] Shoaib Kingsley Shena 12/03/2023 1 [facility] [employer] - TOGETHER (MEDICAID HMO) [id number] Shoaib Groverilva III [id number] 1 Shoaib Kingsley Shena Notes Date Note Type Note Provider Name and Address Organization Details Recorded Time 12/03/2023 text/html Skin Redness UCReported bypatient.Location: right arm; pt has a history of alcoholism, was at a rehab, was taking po and upon di charge was started on vivitriol patient reports drinking alcohol past several days and noted rash to face and neck No airway involvement no fever and no chills and reports no exposure to any other known allegrens Quality:painful;cr sed;itchy Severity:worsening Onset:gradual onset Symptoms:no fever; no nausea; no vomitingNotes:right hand cellulitis, has a piece of wood embedded , pt removed it was seen at [facility] and treated with antibiotics. Swelling, pain and redness progressively worse. Pt has been taking antibiotics as prescribed. NIKUNJ GORDON NP [address] [place], [address], [place] - [facility] 12/03/2023 14:14:48
== END 2024-09-11 16:08 | disposition home or self-care (01) ==
PROVIDERS: PCP Internal Medicine; Visit Provider Nurse Practitioner Psychiatric/Mental Health
DX: F10.20 Alcohol dependence, uncomplicated (principal)
CPT/HCPCS: 99214

== ENCOUNTER → 2024-09-11 15:27 | Outpatient (BNVA) | payer MEDICAID, SELFPAY | PROVIDERS: PCP Internal Medicine; Visit Provider Nurse Practitioner Psychiatric/Mental Health | DX: F10.20 Alcohol dependence, uncomplicated (principal); Z51.81 Encounter for therapeutic drug level monitoring | CPT/HCPCS: 99212 ==

== ENCOUNTER → 2024-09-17 15:23 | Outpatient (BNVA) | payer MEDICAID, SELFPAY | PROVIDERS: PCP Internal Medicine; Visit Provider Nurse Practitioner Psychiatric/Mental Health | DX: F10.20 Alcohol dependence, uncomplicated (principal) | CPT/HCPCS: 99212 ==

== ENCOUNTER 2024-09-26 09:26 | Outpatient (AMB) | payer MEDICAID, SELFPAY ==
--- NOTE | 2024-09-26 09:33 | A.OFFVISCC_ITS ---
Intake Visit Reasons: MAT Office Allergies No Known Allergies Allergy (Verified 08/13/23 08:34) HPI HPI MAT Office: Details: Patient presents for AUD treatment follow up Reports that he has an intake schedule with [facility] October 14 Over the last week has been going home and cooking dinner Has been increasing use of edibles as a way to reduce alcohol intake Found gabapentin helpful and requesting a refill Review of Systems Const Reports as per HPI Physical Exam Const General: cooperative, alert, awake and anxious Nutritional Appearance: average body habitus Orientation/consciousness: patient oriented x3 Limitations: no limitations Neuro General: patient oriented x3 Psych Appearance: grossly normal Speech and movement: Pressured speech present Affect: Animated affect present and Anxious affect present Attitude: cooperative Thought process: Circumstantial thought process present Thought content: Normal thought content present Insight: Fair insight present (Psych) Judgement: Fair judgement present (Psych) Assessment & Plan Assessment & Plan (1) Alcohol use disorder, severe, dependence: Code(s): F10.20 - Alcohol dependence, uncomplicated Category: Medical Plan: * risk reduction discussion * follow up 2 weeks * refilled gabapentin Medications: Refilled gabapentin 100 mg PO BID PRN 60 caps 0RF anxiety
--- OUTSIDE RECORDS SUMMARY | 2024-09-26 09:51 | XMS_ITS | Data Portability ---
Author Organization TERRENCE Goldsmith s, [address] Address [address] [place] [address] Assessment Encounter Date Assessment Date Assessment LastModified [...] Orders prednisone 50 mg tablet 2023 024 [facility] #[id number], [address] [place], [address], 12:34:29 famotidine 40 mg tablet 2023 024 [facility] #[id number], [address] [place], [address], 12:34:30 triamcinolo ne acetonide 0.1 % topical cream 2023 024 [facility][id number], [address] [place], [address], 12:34:31 Patient TargetsNo targets recorded. Patient Instructions Encounter Date Encounter Id Patient Instructions Last Modified By Organization Details Last Modified Time 12/03/2023 [id number] allergic reaction: care instructions annalee Not available 12/03/2023 12:34:27 dermatitis: care instructions annalee Not available 12/03/2023 12:34:27 Reason for Referral None Reported. Problems Name Problem SNOMED Code Status Onset Date Resolution Date Notes Provider Name and Address Organization Details Recorded Time Alcoholism 1328024 Active 024 Courtney Banerjee null, [place] - [facility] 4 10:46:23 Depressive disorder 41569335 Active 024 Mindy ordaz, [place] - [facility] 4 11:56:42 Anxiety 28671198 Active 024 Mindy ordaz, PA - [facility] 4 11:56:49 Pruritic rash 91665697 Active 024 NIKUNJ GORDON NP [address] , [place], [address], [place] - [facility] 4 12:25:50 Contact dermatitis 48871444 Active 024 NIKUNJ GORDON NP [address] , [facility] [place], [address], [place] - [facility] 4 12:28:35 [...] height Body mass index (BMI) Body weight Oxygen saturation Oxygen saturation in Arterial blood by Pulse oximetry Heart rate Systolic blood pressure Diastolic blood pressure Provider Name and Address Organization Details Last Updated DateTime 4 175.26 cm 24.8 kg/m2 50270.5 2 g 98 % 98 % 73 /min 155 mm[Hg] 79 mm[Hg] Mindy Villegas PA - [facility] 4 11:49:50 Social History Question Answer Notes LastModified by Organizat ion Details LastModified Time What Is Your Level Of Alcohol Consumption? Heavy marchambo Information not available 12/03/2023 What Is Your [facility] Status? [facility] Information not available 12/03/2023 Sex: Unknown Functional Status None recorded. Mental Status None recorded. Family History Relationship Description Onset Age of this Age Resolved Age Notes LastModified by Organization Details LastModified Time Father No current problems or disability marchambo Not available 12/02 11:56:53 Mother No current problems or disability marchambo Not available 12/02 11:56:53 Medical History No medical history recorded. Past Encounters Encounter ID Performer Location Encounter Start Date Encounter Closed Date Diagnosis/Indication Diagnosis SNOMED-CT Code Diagnosis ICD10 Code Diagnosis Note [id number] [address] 01/20/2020 18:51:23 01/20/2020 19:20:49 [id number] NIKUNJ GORDON NP [address] [address] 12/03/2023 11:33:30 12/03/2023 12:37:58 Pruritic rash 44359295 L28.2 Contact dermatitis 75488 004 L25.9 Health Concerns Section Related Observation LastModified by Organization Detai ls LastModified Time None Recorded Concern Status LastModified by Organization Details LastModified Time None Recorded Advance Directives Directive None Recorded Payers Encounter Date Sequence Insurance Name Policy Number Policy Balbuena Covered Member ID Balbuena Member ID Guarantor Name 01/20/2020 1 [place] [id number] Shoaib Chatterjee [id number] Shoaib Chatterjee 12/03/2023 1 [facility] [employer] - TOGETHER (MEDICAID HMO) [id number] Shoaib Chatterjee III [id number] 1 Shoaib Chatterjee Notes Date Note Type Note [...] antibiotics as prescribed. NIKUNJ GORDON NP [address] [place], [address], [place] - [facility] 12/03/2023 14:14:48
--- OUTSIDE RECORDS SUMMARY | 2024-09-26 09:51 | XMS_ITS | Data Portability ---
Author Organization [facility] Address [address] [place] [address] Assessment No assessment recorded. Plan of Treatment Reminders Order Date Submit Date Provider Last Modified By Organization Details Last Modified Time Details Appointments None recorded. Lab CMP, serum or plasma 2022 023 [facility], [address] [place] [address], [address], 3 08:18:45 vitamin B1 (thiamine) , blood 2022 023 [facility], [address] [place] [address], [address], 3 09:20:37 amylase + lipase, serum 2022 023 [facility], [address] [place] [address], [address], 3 11:30:54 PT/INR 2022 023 [facility], [address] [place] [address], [address], 3 08:14:54 gamma-glut amyl transferas e (ggt), serum 2022 023 [facility], [address] [place] [address], [address], 3 11:30:54 Referral None recorded. Procedures None recorded. Surgeries None recorded. Imaging US, liver 2022 023 [facility], [address] [place], [address], 08:26:11 Medication Orders quetiapine 50 mg tablet 2022 023 [facility]armacy #[id number], [address] [place], [address], 15:24:04 sertraline 100 mg tablet 2022 023 [facility] #0373, [address] [place], [address], 15:24:04 gabapentin 300 mg capsule 2022 023 [facility] [address] [place], [address], 15:18:51 alprazolam 1 mg tablet 2022 023 [facility] #0373, [address] [place], [address], 11:25:53 Patient TargetsNo targets recorded. Patient InstructionsNo instructions recorded. Reason for Referral None Reported. Results Created Date Observation Date Name Description Value Unit Range Abnormal Flag Note LastModifiedBy Organization Detail LastModifiedTime 04/24/2004/20/2023 MRI, wrist , w/o contr ast No observ ation record ed. jbigda [facility] [address] [address], [place], [address], 04/24/2023 17:16:38 07/11/20 23 07/09/2023 US, liver No observ ation record ed. [address] (Medical Records) [address] [place], [address], 07/11/2023 09:35:21 08/13/19 24 08/13/2023 imagi ng/di agnos tic resul t No observ ation record ed. [address] [facility] (Medical Records) [address] [facility], [place], [address], 08/14/2023 08:39:17 Result Notes None recorded. Problems Name Problem SNOMED Code Status Onset Date Resolution Date Notes Provider Name and Address Organization Details Recorded Time Gastroeso phageal reflux disease 485278725 Active 2017 [facility] 8 08:53:44 Anxiety 45285989 Active 2017 [facility] [address], [address], [facility] 8 13:37:26 Major depressiv e disorder 301331970 Active 2017 [facility] [address], [address], [facility] 8 13:37:32 Granuloma annulare 40326413 Active 2019 TERRENCE BAXTER [address] [place] [address], [address], [facility] 0 09:43:05 Panic attack 505144821 Active 2021 TERRENCE BAXTER [address] [place] [address], [address], [facility] 2 10:52:19 COVID-19 826857828 Active 2021 TERRENCE BAXTER [address] [place] [address], [address], [facility] 2 14:20:44 Jaundice 15939421 Active 2022 TERRENCE BAXTER [address] [place] [address], [address], [facility] 3 09:59:52 Pain of bilateral eyes 491731384811 109 Active 2022 TERRENCE BAXTER [address] [place] [address], [address], [facility] 3 10:02:06 Insomnia 511501250 Active 2022 TERRENCE BAXTER [address] [place] [address], [address], [facility] 3 10:03:55 Liver enzymes level above reference range 648164001 Active 2022 TERRENCE BAXTER [address] [place] [address], [address], [facility] 3 10:24:32 Depressiv e disorder 72655094 Active 2022 TERRENCE BAXTER [address] [place] [address], [address], [facility] 3 14:31:08 Alcohol dependenc e 85159234 Active 2022 TERRENCE BAXTER [address] [place] [address], [address], [facility] 3 14:35:35 Tremor 92009177 Active 2022 TERRENCE BAXTER [address] [place] [address], [address], [facility] 3 14:36:04 Pain of left wrist 198983404424 102 Active 2022 TERRENCE BAXTER [address] [place] [address], [address], [facility] 3 15:37:48 Alcohol abuse 87170913 Active 2022 TERRENCE BAXTER [address] [place] [address], [address], [facility] 3 13:54:14 Pain in wrist 73405872 Active 2022 TERRENCE BAXTER [address] [place] [address], [address], 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 3 14:12:36 Dyspnea 047462775 Active 2022 TERRENCE BAXTER [address] [place], [address], [facility] 3 14:16:53 Alcoholic hepatitis 908851367 Active 2022 TERRENCE BAXTER [address] [place], [address], [facility] 3 15:15:17 Problem Notes None recorded. Procedures Surgical History None recorded. Imaging Results Imaging Date Name Status LastModified by Organiz ation Details LastModified Time 04/20/2023 MRI, wrist, w/o contrast [facility] [address], [address], 04/24/2023 17:16:38 07/09/2023 US, liver completed [address] (Medical Records) [address] [place] [address], [address], 07/11/2023 09:35:21 08/13/2023 imaging/diagn ostic result completed [address] (Medical Records) [address] [place] [address], [address], 08/14/2023 08:39:17 Procedure Notes None recorded. Medical Equipment None Reported. Allergies Allergen ID Allergen Name Allergen Category Reaction Reaction Severity Criticality Documentation Date Start Date Code Code System Note Provider Name and Address Organization Details Recorded Time 5344 duloxetin e medicatio n dizziness severe Not available 08/31/2021 80646 RxNorm TERRENCE BAXTER [address] [place], [address], [facility] 2 14:42:41 Medications Name Sig [...] Updated DateTime 3 175.26 cm 26.5 kg/m2 78305.1 1 g 77 /min 97 % 97 % 172 mm[Hg] 92 mm[Hg] TERRENCE BAXTER [address] [place], [address], [facility] 3 14:54:36 Date Recorded Body height Body mass index (BMI) Body weight Heart rate Oxygen saturation Oxygen saturation in Arterial blood by Pulse oximetry Systolic blood pressure Diastolic blood pressure Provider Name and Address Organization Details Last Updated DateTime 3 175.26 cm 25.7 kg/m2 55001.0 7 g 100 /min 98 % 98 % 140 mm[Hg] 85 mm[Hg] Pattijohnny Romankes [facility] 3 11:05:10 Date Recorded Body height Body mass index (BMI) Body weight Heart rate Oxygen saturation Oxygen saturation in Arterial blood by Pulse oximetry Systolic blood pressure Diastolic blood pressure Provider Name and Address Organization Details Last Updated DateTime 3 175.26 cm 25.8 kg/m2 65500.6 6 g 87 /min 98 % 98 % 120 mm[Hg] 74 mm[Hg] Paulina Rowe [facility] 3 14:54:16 Social History Question Answer Notes LastModified by Organizat ion Details LastModified Time Tobacco Smoking Status Former Smoker Pattijohnny Romankes [facility] 05/09/2023 11:03:24 What Was The Date Of Your Most Recent Tobacco Screening? 06/01/2023 [email or web address] Information not available 06/01/2023 Sex: Unknown Functional Status None recorded. Mental Status None recorded. Family History Nothing Reported. Medical History No medical history recorded. Immunizations Vaccine Type Date Status Note Provider Nam e and Address Organization Details Recorded Time Influenza, split virus, quadrivalent, preservative 0 completed Tonya ordaz [facility] 08/04/2020 09:48:47 COVID-19, mRNA, LNP-S, PF, 100 mcg/0.5mL dose or 50 mcg/0.25mL dose 1 completed Lisa Carson [facility] 12/17/2020 08:56:58 Past Encounters Encounter ID Performer Location Encounter Start Date Encounter Closed Date Diagnosis/Indication Diagnosis SNOMED-CT Code Diagnosis ICD10 Code Diagnosis Note [id number] Hansa Walker NP, S [facility] [address] [facility],[place] [address] 05/07/2018 14:38:59 05/08/2018 08:47:04 Acute sinusitis 79608599 J01.90 [id number] [facility] [address] [facility],[place] [address] 07/26/2018 13:16:14 07/26/2018 14:01:22 Anxiety 84646567 F41.9 Depressive disorder 3548 9007 F33.9 will do 25 mg x 7 days then incrase to 50 thereafter . will continue for 8 weeks and then f/u. if at 4 week terry has not noticed any change nor any side effects, we career placement services counselor consider a dose increase to 75 mg at that time. pt will call at the 4 week point if he would like to make that dose increase. [id number] Chiqui [facility] [address] [facility],[place] [address] 09/27/2018 16:09:58 09/27/2018 16:47:49 Depressive disorder 41779964 F33.9 will trial an increase in the dose of zoloft will consider dose increase right before insurance runs out if the 100 mg dose doesn't seem adequate Anxiety 74089299 F41.9 as above Gastroesop hageal reflux disease 374134211 K21.9 no meds, sometimes tums as needed [id number] TERRENCE BAXTER [facility] [address] [place] [address],[place] [address] 05/03/2020 11:23:35 05/03/2020 15:09:13 Acute pharyngitis 418132235 J02.9 will treat for probable strep throat [id number] TERRENCE BAXTER [facility] [address] [place] [address],[place] [address] 08/04/2020 09:22:43 08/04/2020 10:03:57 Carpal tunnel syndrome of left wrist 9605991847 86645 G56.02 will set up with ortho for eval of both medial epicondyli tis and carpal tunnel Medial epi condylitis of left elbow joint 0593939870 01999 M77.02 as above Herpes labialis 0949821 B00.1 instructed patient how to use when he has an outbreak Granuloma annulare 50798 009 L92.0 will trial steriod cream to see if effective [id number] TERRENCE BAXTER [facility] [address] [facility] [address],[place] [address] 12/17/2020 08:48:18 12/17/2020 09:39:19 Active or passive immunization 135757100 Z23 advised Adult heal th examination 828976075 Z00.00 due for BW will recheck BP at next appt told patient to work on his drinking Anxiety 07705291 F41.9 will trial medication Contact dermatitis 45604 004 L25.9 due metal allergy [id number] TERRENCE BAXTER [facility] [address] [facility] [address],[place] [address] 08/31/2021 08:11:18 09/02/2021 13:18:19 Depressive disorder 64002167 F33.9 will call back in 2 to 3 weeks with update [id number] TERRENCE BAXTER [facility] [address] [facility] [address],[place] [address] 09/01/2022 09:40:39 09/01/2022 12:16:52 Anxiety 76862534 F41.1 will adjust his medication Jaundice 52823364 R17 will set up with lab work Pain of bi lateral eyes 2804103270 27329 H57.13 will set up with optho Insomnia 249303891 G47.0 9 will set up with trazodone 50 mg for a trial run [id number] TERRENCE BAXTER [facility] [address] [facility] [address],[place] [address] 09/15/2022 08:25:45 09/15/2022 16:27:44 Liver enzymes level above reference range 189079990 R74.01 will monitor Anxiety 43619329 F41.1 will adjust his medication Major depr essive disorder 870137521 F32.0 will continue with current medication s Insomnia 455499037 G47.0 9 will set up with trazodone 50 mg for a trial run [id number] TERRENCE BAXTER [facility] [address] [facility] [address] [address] [facility] [place] [address] 11/22/2022 13:49:48 11/22/2022 14:55:29 Panic attack 838947419 F41.0 discussed mood Depressive disorder 6008 9007 F33.9 will adjust mirtazapin e Insomnia 525053372 G47.0 9 no effect with trazodonea greed to switch medication Alcohol dependence 76219 003 F10.288 never got [facility] recheck labsno guarantee that if patient is reschedule d he will do to appt Tremor 17313442 G25.2 will recheck labscontin umaciel to have tremorsmay need MRI scan to see if he has any nerve damage due to alcohol use [id number] TERRENCE BAXTER [facility] [address] [facility] [address],[place] [address] 01/05/2023 13:41:25 01/05/2023 14:12:32 Alcohol abuse 54568981 F10.99 agreed to chlordiaze poxide trial for the withdrawal Anxiety 88229250 F41.1 will adjust his medication [id number] TERRENCE BAXTER [facility] [address] [facility] [address],[place] [address] [address] [facility] [place] [address] 03/27/2023 13:49:03 03/27/2023 15:07:43 Alcohol abuse 14575119 F10.99 agreed to chlordiaze poxide trial for the withdrawal Gastroesop hageal reflux disease 835919562 K21.9 stable Panic attack 363799148 F 41.0 discussed mood Severe rec urrent major depression without psychotic features 43864894 F33.2 will start on seroquel with an increased to 150 mg of sertraline Dyspnea 993627623 R06.02 will start on albuterol Insomnia 279459504 G47.0 9 no effect with trazodonea greed to switch medication [id number] TERRENCE BAXTER [facility] [address] [facility] [address],[place] [address] 04/03/2023 14:17:11 04/03/2023 15:52:58 Alcohol abuse 53505208 F10.99 agreed to chlordiaze poxide trial for the withdrawal Panic attack 521460144 F 41.0 discussed mood Insomnia 398207083 G47.0 9 adjusted medhasn't started it yet Alcohol dependence 01618 003 F10.288 doing okay [id number] TERRENCE BAXTER [facility] [address] [facility] [address],[place] [address] [address] [facility] [place] [address] 04/11/2023 08:58:53 04/13/2023 15:35:52 Alcohol abuse 21516386 F10.99 agreed to chlordiaze poxide trial for the withdrawal Panic attack 605293473 F 41.0 discussed mood Anxiety 21135409 F41.1 will adjust his medication Depressive disorder 3548 9007 F33.9 will adjust mirtazapin e [id number] TERRENCE BAXTER [facility] [address] [facility] [address],[place] [address] 05/09/2023 10:55:39 05/09/2023 12:00:15 Alcohol abuse 09958556 F10.99 agreed to chlordiaze poxide trial for the withdrawal Alcohol dependence 69024 003 F10.288 going to rehab Insomnia 694071481 G47.0 9 cont at rehab Jaundice 80225544 R17 will set up with lab work [id number] TERRENCE BAXTER [facility] [address] [facility] [address],[facility] [place] [address] 06/01/2023 14:44:29 06/01/2023 15:45:55 Alcohol abuse 62676965 F10.99 stablework ing on cutting out alcoholonl y drank once this week working on getting him to stop completely working with case supervisor Alcohol dependence 53763 003 F10.288 working with rehab and case supervisor Alcoholic hepatitis 2943 82261 K70.10 AST, ALT, GGT, ALK PHOS > dropped down to closer range Liver enzy mes level above reference range 518167544 R74.01 will monitor his levels Pain of left wrist 66411 86863 97596 M25.532 will try a course of gabapentin and see if his levels improves Severe rec urrent major depression without psychotic features 81536247 F33.2 will start on seroquel with an increased to 150 mg of sertraline Anxiety 08188069 F41.1 will adjust his medication [id number] TERRENCE BAXTER [facility] [address] [facility],[place] [address] 09/05/2023 10:54:22 09/05/2023 16:28:40 Health Concerns Section Related Observation LastModified by Organization Detai ls LastModified Time None Recorded Concern Status LastModified by Organization Details LastModified Time None Recorded Advance Directives Directive None Recorded Payers Encounter Date Sequence Insurance Name Policy Number Policy Balbuena Covered Member ID Balbuena Member ID Guarantor Name 04/03/2023 1 [place] [id number] Shoaib Chatterjee [id number] Shoaib Chatterjee 04/11/2023 1 [place] [id number] Shoaib Chatterjee [id number] Shoaib Chatterjee 05/09/2023 1 [place] [id number] Shoaib Chatterjee [id number] Shoaib Chatterjee 06/01/2023 1 [facility] [employer] - DIRECT CONNECTORCARE TYPE I (HMO) [id number] Shoaib Chatterjee III [id number] 01 Shoaib Chatterjee 09/05/2023 1 [facility] [employer] - DIRECT CONNECTORCARE TYPE I (HMO) [id number] Shoaib Chatterjee III [id number] Shoaib Chatterjee Notes Date Note Type Note Provider Name a nd Address Organization Details Recorded Time 3 text/html f/u one week panic attacks: didn't start the medication alcohol abuse: hasn't drank as much this week insomnia: sleeping a bit better depression: discussed starting his meds I added last week discussed appealing disabilitylisted this office instead of his surgeon's office TERRENCE BAXTER [address] [facility], [place], [address], [facility] 04/03/2023 15:20:04 3 [...] dependence: still drinking excessively TERRENCE BAXTER [address] [place], [address], [facility] 05/09/2023 11:33:24 3 text/html f/u labs the patient is still having pain in his left wristthe patient reports that he has a follow up with his surgeon next Sundaythe injections did not workwill discuss alternatives will try a course of gabapentin for the nerve and wrist pain will also monitor his level TERRENCE BAXTER [address] [place], [address], [facility] 06/01/2023 15:24:10
--- OUTSIDE RECORDS SUMMARY | 2024-09-26 09:51 | XMS_ITS | Data Portability ---
Author Organization [facility] Address [address] [place] [address] Care Team Providers Care Staff Research Scientist Name Role Phone SILVA MAIER Primary Care Provider [phone] Assessment No assessment recorded. Plan of Treatment [...] By Organization Details Last Modified Time 05/07/2023 [id number] Educational materials are supplied regarding diagnoses & [...] Time 2 Orthopaedic Surgery completed Genny ramos [facility] 05/07/2023 09:22:27 Imaging [...] Updated DateTime 05/07/2023 175.26 cm 25.8 kg/m2 95503.66 g Genny [facility] 05/07/2023 09:21:50 Social History None recorded. Functional Status None recorded. Mental Status None recorded. Family History Nothing Reported. 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 Chronic po stoperative pain 6281031491 60542 G89.28 Health Concerns Section Related Observation LastModified by Organization Detai ls LastModified Time None Recorded Concern Status LastModified by Organization Details LastModified Time None Recorded Advance Directives Directive None Recorded Payers Encounter Date Sequence Insurance Name Policy Number Policy Balbuena Covered Member ID Balbuena Member ID Guarantor Name 05/07/2023 1 [place] [facility] Shoaib Chatterjee III [id number] Shoaib Chatterjee Notes Date Note Type Note Provider Name and Address Organization Details Recorded Time 05/07/2023 text/html The patient is seen today for re evaluation of left wrist pain. Reported onset past year, noted diagnosis of prior wrist scaphoid injury and cyst. He has treated with Dr. Lindquist at [facility]. He underwent surgery 07/18/2022 for PRC and cyst excision. 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 No prior history of trauma is noted. Consultation is requested. AVRIL JEFFRIES MD [address] [place] [address], [place], [address], [facility] 05/07/2023 09:56:09
--- OUTSIDE RECORDS SUMMARY | 2024-09-26 09:51 | XMS_ITS | Clinical Summary ---
Author Organization [facility] Address [address] [place] [address] Care Team Providers Care Riprap Man Name Role Phone Unavailable Primary Care Provider Unavailabl e Surgical History Surgery Date Site/Laterality Comments OTHER SURGICAL HISTORY PROCEDURE: DENIES PREVIOUS SURGERY Medical History Medical History Date Comments 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 Family History Medical History Relation Name Comments Other: [id number] Other 1 Both parents a live and [...] at Not on file Legal Sex Male 2:54 PM EST Gender Identity Not on file Sexual Orientation Not on file Obstetrics History Plan of Treatment Health Maintenance Due Date Last Done Comments Hepatitis A Vaccines (1 of 2 - Risk 2-dose series) 2006 Hepatitis B Vaccines (1 of 3 - 19+ 3-dose series) 2006 Pneumococcal Vaccine: Pediat rics (0 to 5 Years) and At-Risk Patients (6 to 64 Years) (1 of 2 - PCV) 2006 DTaP,Tdap,and Td Vaccines (2 - Td [...] patient's age to complete this topic Meningococcal B Vacine Aged Out No lo nger eligible based on patient's age to complete this topic RSV Immunization Patients Un wily 20 months Aged Out No longer eligible b ased on patient's age to complete this topic Varicella Vaccines Aged Out No longer eligible based on patient's age to complete this topic
--- OUTSIDE RECORDS SUMMARY | 2024-09-26 09:51 | XMS_ITS | Data Portability ---
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 Procedures [...] Updated DateTime 11/23/2023 175.26 cm 174.3 kg/m2 689393 g DONITA GUERIN [facility] 11/23/2023 11:30:59 Social History None recorded. Functional Status None recorded. Mental Status None recorded. Family History Nothing Reported. Medical History No medical history recorded. Past Encounters Encounter ID Performer Location Encounter Start Date Encounter Closed Date Diagnosis/Indication Diagnosis SNOMED-CT Code Diagnosis ICD10 Code Diagnosis Note [id number] Maria Ines barclay MD [facility] 1st [address] [place] [address] 11/23/2023 11:19:52 12/18/2023 13:38:29 Pain of left wrist [id number] 02333 M25.532 Health Concerns Section Related Observation LastModified [...] of weeks. Maria Ines Lindquist MD [address] [facility] [address], [address], [facility] 11/23/2023 12:04:16
== END 2024-09-26 10:09 | disposition home or self-care (01) ==
PROVIDERS: PCP Internal Medicine; Visit Provider Nurse Practitioner Psychiatric/Mental Health
DX: F10.20 Alcohol dependence, uncomplicated (principal)
CPT/HCPCS: 99214

== ENCOUNTER → 2024-09-26 09:26 | Outpatient (BNVA) | payer MEDICAID, SELFPAY | PROVIDERS: PCP Internal Medicine; Visit Provider Nurse Practitioner Psychiatric/Mental Health | DX: F10.20 Alcohol dependence, uncomplicated (principal); Z51.81 Encounter for therapeutic drug level monitoring; Z79.899 Other long term (current) drug therapy | CPT/HCPCS: 99212 ==

== ENCOUNTER 2025-05-25 09:35 | Emergency (ER) | payer OTHER, SELFPAY ==
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
--- NOTE | ~2025-05-25 | XR_ITS ---
CLINICAL HISTORY: L knee injury skateboarding 4 view left knee Comparison: None provided Findings: No fractures or dislocations. No significant loss of joint space, osteophytes, or erosions. Trace/physiological suprapatellar joint effusion. No radiopaque foreign body. IMPRESSION: 1. No acute fracture This document has been electronically signed by: Gifty Kamara MD on 05/25/2025 12:06:51
[2025-05-25 09:41] VITALS: BP 139/89; BP 148/76; PULSE 102; PULSE 127; RESP 18; TEMP 36.8; O2SAT 95; O2SAT 97; BMI 25.1
--- NOTE | 2025-05-25 10:02 | ED.LOWEXIN ---
HPI - Extremity Injury (Lower) General Chief Complaint: Extremity Injury, Lower Stated Complaint: KNEE INJ,SKATEBOARDING,-HS PER EMS Time Seen by Provider: 05/25/25 10:01 Source: patient and EMS Mode of arrival: EMS Limitations: no limitations History of Present Illness ED Provider: SAMANTHA OLSEN PA-C HPI Narrative: 40-year-old male with pmhx significant for alcohol use disorder presents to the ED today via EMS for evaluation of left knee pain s/p injury. Patient states that he was skateboarding at the [employer] when he landed wrong on his left knee. He believes he may have twisted the knee. He did not land directly on the knee. Admits to immediate pain to the outer aspect of the left knee with difficulty bearing wait. No radiation of pain. Denies numbness/tingling of the LLE. Denies any difficulty flexing or extending the knee. Denies head strike or LOC. Not on anticoagulation. does admit to consuming etoh prior to arriving at the [employer]. Patient states that he left detox approximately 2 weeks ago, is now drinking again. He is not interested in any detox services at this time. Related Data Home Medications ?Medication ?Instructions ?Recorded ?Confirmed sertraline 100 mg tablet 100 mg PO DAILY 08/26/24 08/26/24 Previous Rx's ?Medication ?Instructions ?Recorded gabapentin 100 mg capsule 100 mg PO BID PRN anxiety #60 caps 09/26/24 Allergies Allergy/AdvReac Type Severity Reaction Status Date / Time No Known Allergies Allergy Verified 05/25/25 09:45 Review of Systems Review of Systems: Yes all other systems are reviewed and are negative PMFSH Past Medical History Attestation statement: The following information was validated with the patient. Source: old records reviewed and nursing notes reviewed Social History Social History Alcohol intake: current Alcohol type: hard liquor Advance Directives: No Advance Directives Information Provided: No Physical Exam Vital Signs: Vital Signs: Last Vital Signs Temp 98.2 F 05/25/25 12:40 Pulse 102 H 05/25/25 12:40 Resp 18 05/25/25 12:40 BP 139/89 05/25/25 12:40 Pulse Ox 95 05/25/25 12:40 O2 Del Method Room Air 05/25/25 12:40 BMI result Body Mass Index 25.1 Tachycardic, vitals are otherwise WNL General: Well appearing, in no acute distress. Skin: Warm, dry, intact. No rashes or lesions. Head: Normocephalic, atraumatic. EENT: Hearing is intact b/l. Conjunctiva clear. PERRLA. EOM intact. Moist mucous membranes.? Cardiac: Chest wall symmetric. RRR Lungs: Normal respiratory effort without accessory muscle use Ext: + minimal swelling noted to left knee. No overlying erythema, deformity. He has full ROM intact with active and passive range of motion. Notes tenderness to palpation along the lateral aspect, no palpable deformity or crepitus, fluctuance. Able to fully extend/flex knee, can lift left lower extremity off the bed. Neurovascularly intact distally. Neuro: AOx3. Normal speech Course Course Course Narrative: 1225pm Zuleyma Lackey PA-C ---> I was asked by Samantha Olsen PA-C to evaluate the patient's left knee. I performed a left knee exam that was essentially normal. I explained to the patient that he likely has a sprain / strain however, given he is unable to bear weight on it - there may be an internal knee injury that needs further evaluation / treatment. I explained to the patient that he should have an immobilizer placed and be non weight bearing until he sees the orthopedic team. Patient stated that he absolutely does not want or need an immobilizer or crutches and that he wants to be sent somewhere to have it fixed now . I explained again to the patient that there is no EMERGENT cause for his left knee pain and that no facility would take him for a surgical intervention he has not been deemed as needing at this time and there is no emergent need for. Patient stated that he would like to be discharged, without the immobilizer or the crutches. Patient was alert, oriented, and able to make his own medical decisions. I printed the patient's discharge instructions and we went over them together - in detail. I circled the orthopedic teams number and again explained to the patient that he should be non weight bearing on the left knee given his concerns of the knee giving out and he should follow up with the orthopedic team. Patient verbalized understanding and agreement with this treatment plan and discharge. Reevaluation(s) Reevaluation #1: 1230 -- patient's physical exam is unremarkable. There is mild swelling noted to left knee without obvious deformity. He has full ROM intact. Some discomfort with palpation to the lateral aspect of left knee, no deformity or crepitus. Able to flex and extend, can lift left lower extremity off of bed. he is NV intact distally. > x-ray left knee unremarkable. No noted fracture or significant effusion. > concern for underlying ligament injury given mechanism of action. patient treated with IM toradol. I discussed workup results with patient. Explained he will need a knee immobilizer and crutches with outpatient ortho follow up for MRI. Patient became quite agitated, demanding MRI in ED. states we are doing nothing' for him. > my colleague zuleyma zamora at bedside for second opinion/exam > ultimately, patient adamantly declined knee immobilizer/crutches. States he wants to leave. He is alert and oriented, capable of making his own decisions. He has a sober ride home. > declining detox for his alcohol abuse at this time Medications Administered Discontinued Medications Generic Name Dose Route Start Last Admin Trade Name Freq PRN Reason Stop Dose Admin Ketorolac Tromethamine 30 mg 05/25/25 10:11 05/25/25 10:17 Ketorolac Tromethamine 30 Mg/Ml Vial IM 05/25/25 10:12 30 mg ONCE ONE Administration Medical Decision Making Medical Decision Making [facility] Narrative: 40-year-old male with pmhx significant for alcohol use disorder presents to the ED today via EMS for evaluation of left knee pain s/p injury. tachycardic, vitals otherwise WNL. on exam, minimal swelling noted to left knee. No overlying erythema, deformity. He has full ROM intact with active and passive range of motion. Notes tenderness to palpation along the lateral aspect, no palpable deformity or crepitus, fluctuance. Able to fully extend/flex knee, can lift left lower extremity off the bed. Neurovascularly intact distally. Differential diagnosis includes contusion, MSK sprain/strain, fracture, dislocation, arthritis, ETOH abuse, ETOH intoxication. Unlikely neurovascular compromise, threat to limb, compartment syndrome. Plan for x-rays, pain control and re-evaluation. Differential Diagnosis Differential Diagnoses: The differential diagnosis associated with the presentation includes As above Admission/Observation Not indicated Independent Interpretation I performed an independent interpretation of an: Plain X-Ray Interpretation: X-ray left knee without fracture Radiology Impression Discussion of test interpretation with radiology: I have reviewed the radiologist's reading. Radiologist Impression: Procedure(s): XR knee LT 4V Accession Number(s): [id number] cc: Physician,Unknown ; Samantha Olsen~ Reason for Exam: L knee injury skateboarding CLINICAL HISTORY: L knee injury skateboarding 4 view left knee Comparison: None provided Findings: No fractures or dislocations. No significant loss of joint space, osteophytes, or erosions. Trace/physiological suprapatellar joint effusion. No radiopaque foreign body. IMPRESSION: 1. No acute fracture This document has been electronically signed by: Gifty Kamara MD on 05/25/2025 12:06:51 Independent Historian Clinical information obtained from an independent historian. History obtained from or confirmed by: EMS External Record Review External record reviewed: Inpatient record Prescription Management I considered prescription management with: Pain Medication Social Determinants Patient?s care significantly limited by Social Determinants of Health including: Other Social Determinant of Health Critical Care Time Critical Care Time Critical Care Time: No Discharge Plan Discharge Clinical Impression: Left knee sprain Patient Disposition: Home, Self-Care Instructions: Knee Sprain (ED), Crutch Instructions (ED) Additional Instructions: You were evaluated in the ED today for a left knee injury The x-ray does not demonstrate any acute fracture. You sprained your knee. We have applied a knee immobilizer. Keep this applied for the next 48 hours. After 48 hours, you may remove the knee immobilizer and engage in gentle [id number] until you are able to follow up with the soil fertility extension specialist. I have provided you with a referral. Call them to establish care tomorrow morning, they will not call you. You will likely require an MRI which they will be able to order outpatient. You may take Tylenol/Motrin at home as needed for pain/discomfort. Please return with any new or worsening symptoms. In the case of an emergency call 911. If you would like to cut down or stop your alcohol use please consider calling our outpatient Addiction Treatment office:? [facility] ([id number] [id number] [address] You have also been given a list of treatment providers in the area that can assist as well.? If you experience seizures, vomiting blood, black stools, falls, severe headache, chest pain, fevers, trouble breathing, hallucinations or any other concerns you need to call 911 or seek immediate care. Please stay hydrated. Prescriptions: No Action sertraline 100 mg tablet 100 mg PO DAILY gabapentin 100 mg capsule 100 mg PO BID PRN (Reason: anxiety ) Qty: 60 0RF Referrals: [facility] [Provider Group] [facility] [place] [facility] [Provider Group] Referral Note: left knee sprain Interventions: ED Discharge Assessment Last Done: 05/25/25 12:40 Discharge Date/Time: 05/25/25 12:40 Print Language: Occitan
--- NOTE | 2025-05-25 10:09 | PC.NURSE ---
Pt BIBA after skateboarding accident, reports falling and twisting left knee. Reports hearing a pop and now feels a grinding sensation when moving the extremity. + CMS, no abrasions or bruising noted. Moderate swelling to interior portion of knee, ice pack applied. Pt reports drinking approx 2-3 drinks of whiskey prior to injury. States he left detox about 2 weeks ago and is not interested in detox treatment at this time. Reports he is currently going through a break up and having difficulty coping, denies SI/HI. Pt changed into gown and awaiting x-ray.
--- OUTSIDE RECORDS SUMMARY | 2025-05-25 10:31 | XMS_ITS | Clinical Summary ---
Author Organization [facility] Address [address] [place] [address] Phone Care Team Providers Care Concrete Pourer Name Role Phone Physician, No Pcp Primary Care Provider Unavaila ble Allergies No known active allergies Medications acamprosate (CAMPRAL) 333 mg EC tablet Take 2 tablets (666 mg total) by mouth 2 (two) times a day. Do not crush, chew, or split. 120 each 03/04/2025 Active Active Problems Problem Noted Date Diagnosed Date Chest pain 03/03/2025 Encounters Date Type Department Care Team Description 03/03/2025 10:27 AM EDT - 03/04/2025 11:31 AM EDT Hospital Encounter [facility] [address] [place] [address] Esau Bernstein MD Bukalo, Nermina, MD Alam, Aroosa, MD Acute hyperactive alcohol withdrawal delirium (CMS/HCC V24, CMS/HCC V28) (Primary Dx); Acute alcoholic intoxication with complication (CMS/HCC V24); Acute abdominal pain; Acute alcoholic gastritis without hemorrhage Discharge Disposition: Left Against Medical Advice from Last 3 Months Surgical History Surgery Date Site/Laterality Comments OTHER SURGICAL HISTORY PROCEDURE: DENIES PREVIOUS SURGERY Medical History Medical History Date Comments 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 Family History Medical History Relation Name Comments Other: [id number] Other 1 Both parents a live and well Relation Name Status Comments Father Alive healthy Mother Alive healthy Other 1 Other 2 Paternal Grandfather Alive HTN Social History Tobacco Use Types Packs/Day Years Used Date Smoking Tobacco: Every Day Cigarettes Smokeless Tobacco: Never Alcohol Use Standard Drinks/Week Comments Yes 0 (1 standard drink = 0.6 oz pur e alcohol) Interpersonal Safety Answer Date Record ed Physical Abuse Unrecognized value 03/03/2025 Verbal Abuse Unrecognized value 03/03/2025 Sex and Gender Information Value Date Recorded Sex Assigned at Not on file Legal Sex Male 2:54 PM EST Gender Identity Not on file Sexual Orientation Not on file Obstetrics History Last Filed Vital Signs Vital Sign Reading Time Taken Comments Blood Pressure 128/101 03/04/2025 7:30 AM EDT Pulse 58 03/04/2025 7:30 AM EDT Temperature 36.4 C (97.5 F) 03/04/2025 7:30 AM EDT Respiratory Rate 16 03/04/2025 7:30 AM EDT Oxygen Saturation 98% 03/04/2025 7:30 AM EDT Inhaled Oxygen Concentration - - Weight 79.4 kg (175 lb) 03/03/2025 10:15 AM EDT Height 175.3 cm (5' 9 ) 03/03/2025 10:15 AM EDT Body Mass Index 25.84 03/03/2025 10:15 AM EDT Plan of Treatment Health Maintenance Due Date Last Done Comments Hepatitis A Vaccines (1 of 2 - Risk 2-dose series) 2006 Hepatitis B Vaccines (1 of 3 - 19+ 3-dose series) 2006 Pneumococcal Vaccine: Pediatrics (0 to 5 Years) and At-Risk Patients (6 to 49 Years) (1 of 2 - PCV) 2006 HPV Vaccines (1 - 3-dose SCD M series) 2014 DTaP,Tdap,and Td Vaccines (2 - Td or Tdap) 12/16/2019 12/15/2009 Cholesterol Screening (Lipid Panel) 06/06/2024 HIV Screening 06/06/2024 Hepatitis C Screening 06/06/2024 Social Influencers of Health Screening 06/06/2024 Depression Screening 08/13/2024 COVID-19 Vaccine (3 - 2024-2 6 season) 2025 01/05/2021, 12/08/2020 Influenza Vaccine (#1) 2025 06/13/2020 RSV Immunization Adult Patients (1 - 1-dose 75+ series) 2062 HIB Vaccines Aged Out No longer eligi [...] age to complete this topic Meningococcal B Vaccine Aged Out No l onger eligible based on patient's age to complete this topic RSV Immunization Patients Under 20 months Aged Out No longer eligible b ased on patient's age to complete this topic Varicella Vaccines Aged Out No longer eligible based on patient's age to complete this topic Procedures Procedure Name Priority Date/Time Associated Diagnosis Comments CBC WITH AUTO DIFFERENTIAL Routine 03/04/2025 5:44 AM EDT BASIC METABOLIC PANEL Routine 03/04/2025 5:44 AM EDT CBC AND DIFFERENTIAL Routine 03/04/2025 5:[address] ABDOMEN PELVIS W CONTRAST STAT 03/03/2025 1:47 PM EDT DRUG ABUSE SCREEN 8A PANEL, URINE STAT 03/03/2025 12:03 PM EDT XR CHEST 1 VIEW STAT 03/03/2025 11:54 AM EDT CBC WITH AUTO DIFFERENTIAL STAT 03/03/2025 10:45 AM EDT ETHANOL STAT 03/03/2025 10:45 AM EDT LIPASE STAT 03/03/2025 10:45 AM EDT COMPREHENSIVE METABOLIC PANEL STAT 03/03/2025 10:45 AM EDT CBC AND DIFFERENTIAL STAT 03/03/2025 10:45 AM EDT from Last 3 Months Results * (ABNORMAL) CBC auto differential (03/04/2025 5:44 AM EDT) Only the most recent of2 resultswithin the time period is included. [facility] WBC 6.6 4.8 - 10.8 K/mcL LAB HEMETOLOGY METHOD 03/04/2025 6:[address] [facility] RBC 4.40(L) 4.50 - 5.50 M/mcL LAB HEMETOLOGY METHOD 03/04/2025 6:[address] [facility] Hemoglobin 13.0(L) 13.5 - 17.5 g/dL LAB HEMETOLOGY METHOD 03/04/2025 6:[address] [facility] Hematocrit 39.3(L) 42.0 - 54.0 % LAB HEMETOLOGY METHOD 03/04/2025 6:[address] [facility] MCV 90.3 79.0 - 98.0 FL LAB HEMETOLOGY METHOD 03/04/2025 6:[address] [facility] MCH 29.9 27.0 - 32.0 pcg LAB HEMETOLOGY METHOD 03/04/2025 6:[address] [facility] MCHC 33.1 32.0 - 37.0 g/dL LAB HEMETOLOGY METHOD 03/04/2025 6:[address] [facility] RDW 13.3 11.0 - 15.0 % LAB HEMETOLOGY METHOD 03/04/2025 6:[address] [facility] Platelets 214 130 - 400 K/mcL LAB HEMETOLOGY METHOD 03/04/2025 6:[address] [facility] MPV 9.6 7.0 - 11.0 FL LAB HEMETOLOGY METHOD 03/04/2025 6:[address] [facility] NRBC 0.0 <1.0 % LAB HEMETOLOGY METHOD 03/04/2025 6:[address] [facility] NRBC Absolute 0.00 <0.10 K/mcL LAB HEMETOLOGY METHOD 03/04/2025 6:[address] [facility] Neutrophils Relative 63.1 % LAB HEMETOLOGY METHOD 03/04/2025 6:[address] [facility] Lymphocytes Relative 21.7 % LAB HEMETOLOGY METHOD 03/04/2025 6:[address] [facility] Monocytes Relative 9.1 % LAB HEMETOLOGY METHOD 03/04/2025 6:[address] [facility] Eosinophils Relative 4.9 % LAB HEMETOLOGY METHOD 03/04/2025 6:[address] [facility] Basophils Relative 0.9 % LAB HEMETOLOGY METHOD 03/04/2025 6:[address] [facility] Immature Granulocytes Relative 0.3 % LAB HEMETOLOGY METHOD 03/04/2025 6:[address] [facility] Neutrophils Absolute 4.16 1.50 - 7.00 K/mcL LAB HEMETOLOGY METHOD 03/04/2025 6:[address] [facility] Lymphocytes Absolute 1.43 1.00 - 5.00 K/mcL LAB HEMETOLOGY METHOD 03/04/2025 6:[address] [facility] Monocytes Absolute 0.60 0.20 - 1.00 K/mcL LAB HEMETOLOGY METHOD 03/04/2025 6:[address] [facility] Eosinophils Absolute 0.32 0.00 - 0.50 K/mcL LAB HEMETOLOGY METHOD 03/04/2025 6:[address] [facility] Basophils Absolute 0.06 0.00 - 0.20 K/mcL LAB HEMETOLOGY METHOD 03/04/2025 6:[address] [facility] Immature Granulocytes Absolute 0.02 0.00 - 0.03 K/mcL LAB HEMETOLOGY METHOD 03/04/2025 6:[address] [facility] Blood Venous blood specimen / Unknown Venipuncture / Unknown 03/04/2025 5:44 AM EDT 03/04/2025 6:13 AM EDT us Pauline OCAMPO LAB BLOOD ORDERABLES Final Resu lt [facility] [address] [place] [address], * Basic metabolic panel (03/04/2025 5:44 AM EDT) Sodium 137 133 - 145 mmol/L LAB CHEMISTRY METHOD 03/04/2025 7:[address] [facility] Potassium 4.4 3.5 - 5.5 mmol/L LAB CHEMISTRY METHOD 03/04/2025 7:[address] [facility] Chloride 103 96 - 110 mmol/L LAB CHEMISTRY METHOD 03/04/2025 7:[address] [facility] CO2 28 21 - 32 mmol/L LAB CHEMISTRY METHOD 03/04/2025 7:[address] [facility] Anion Gap 6 3 - 11 LAB CHEMISTRY METHOD 03/04/2025 7:[address] [facility] Glucose 95 70 - 100 mg/dL LAB CHEMISTRY METHOD 03/04/2025 7:[address] [facility] BUN 11 5 - 25 mg/dL LAB CHEMISTRY METHOD 03/04/2025 7:[address] [facility] Creatinine 0.71 0.70 - 1.30 mg/dL LAB CHEMISTRY METHOD 03/04/2025 7:[address] [facility] eGFR 120 >=60 mL/min/1. 73m2 LAB CHEMISTRY METHOD 03/04/2025 7:[address] [facility] Comment:Calculation based on the Chronic Kidney Disease Epidemiology Collaboration (CKD-EPI) equation refit without adjustment for race. BUN/Creatinine Ratio 15.5 LAB CHEMISTRY METHOD 03/04/2025 7:18 AM EDT [facility] Calcium 9.2 8.5 - 10.5 mg/dL LAB CHEMISTRY METHOD 03/04/2025 7:18 AM EDT [facility] Blood Venous blood specimen / Unknown Venipuncture / Unknown 03/04/2025 5:44 AM EDT 03/04/2025 6:15 AM EDT us Pauline OCAMPO LAB BLOOD ORDERABLES Final Resu lt [facility] [address] [place] [address], [place] [phone] * CT Abdomen Pelvis w Contrast (03/03/2025 1:47 PM EDT) Anatomical Region Laterality Modality Body Computed Tomogra phy 03/03/2025 2:15 PM EDT Impressions 03/03/2025 2:26 PM EDT No acute abnormality. The urinary bladder is distended. There is extensive low attenuation within the liver. There is no specific CT evidence of complication from acute pancreatitis. There is no biliary dilation or abscess. -------- FINAL REPORT -------- Dictated By: Mik Qiu Dictated Date: 03/03/2025 14:15 ET Assigned Physician: Mik Qiu Reviewed and Electronically Signed By: Mik Qiu Signed Date: 03/03/2025 14:26 ET Workstation ID: [id number] Transcribed By: Self Edit Transcribed Date: 03/03/2025 14:22 ET Narrative 03/03/2025 2:26 PM EDT EXAMINATION: CT ABDOMEN and PELVIS WITH IV CONTRAST CLINICAL INFORMATION: Abdomen pain. Acute nonlocalized pain. Epigastric pain. COMPARISON: None TECHNIQUE: Multidetector CT. Helical examination of the abdomen and pelvis. Imaging performed after the IV administration of contrast. Reformatting in the coronal and sagittal planes. DLP: 872 mGy-cm Dose optimization was performed including the use of low-dose iterative reconstruction technique with automatic exposure control based on patient size. Type of contrast: ISOVUE 370 Volume of IV contrast: 90 mL Volume of contrast discarded: 0 mL FINDINGS: LIVER: The right lobe of the liver measures 18.9 cm. The liver contour is smooth. There is extensive low-attenuation throughout the liver consistent with fatty change or acute hepatitis. There are some poorly defined low attenuating areas adjacent to the falciform ligament. This is a common location for perfusion abnormalities. No suspicious enhancing liver lesion. BILIARY TRACT: No opaque gallstone. No biliary dilation. SPLEEN: Normal size. No focal lesion. PANCREAS: No suspicious abnormality. ADRENAL GLANDS: No suspicious abnormality. KIDNEYS: The kidneys enhance symmetrically. There is no opaque renal calculus. There is visualization of the collecting system including the ureters bilaterally to the level of the iliac bones. This could be physiologic. No suspicious renal mass. GASTROINTESTINAL TRACT: No bowel wall thickening. No localized fat stranding. No suspicious mass. No abnormality of the region of the distal esophagus or GE junction. No definite abnormality in the abdominal fat. Contrast present within the stomach and some small bowel loops. BLADDER: The bladder is distended. PELVIC VISCERA: No suspicious abnormality ABDOMINAL WALL: No significant hernia is appreciated. LYMPHOVASCULAR STRUCTURES AND FLUID: There is no abdominal aortic aneurysm. The portal vein enhances. There is some swirling in the mesentery but no associated fat stranding. VISUALIZED LOWER CHEST: The heart is mildly enlarged. MUSCULOSKELETAL: No acute or suspicious osseous abnormality. Procedure Note Mik Qiu MD - 03/03/2025 EXAMINATION: CT ABDOMEN and PELVIS WITH IV CONTRAST CLINICAL INFORMATION: Abdomen pain. Acute nonlocalized pain. Epigastric pain. COMPARISON: None TECHNIQUE: Multidetector CT. Helical examination of the abdomen and pelvis. Imaging performed after the IV administration of contrast. Reformatting in the coronal and sagittal planes. DLP: 872 mGy-cm Dose optimization was performed including the use of low-dose iterativereconstruction technique with automatic exposure control based on patientsize. Type of contrast: ISOVUE 370 Volume of IV contrast: 90 mL Volume of contrast discarded: 0 mL FINDINGS: LIVER: The right lobe of the liver measures 18.9 cm. The liver contour issmooth. There is extensive low-attenuation throughout the liver consistentwith fatty change or acute hepatitis. There are some poorly defined lowattenuating areas adjacent to the falciform ligament. This is a commonlocation for perfusion abnormalities. No suspicious enhancing liverlesion. BILIARY TRACT: No opaque gallstone. No biliary dilation. SPLEEN: Normal size. No focal lesion. PANCREAS: No suspicious abnormality. ADRENAL GLANDS: No suspicious abnormality. KIDNEYS: The kidneys enhance symmetrically. There is no opaque renalcalculus. There is visualization of the collecting system including theureters bilaterally to the level of the iliac bones. This could bephysiologic. No suspicious renal mass. GASTROINTESTINAL TRACT: No bowel wall thickening. No localized fatstranding. No suspicious mass. No abnormality of the region of the distalesophagus or GE junction. No definite abnormality in the abdominal fat.Contrast present within the stomach and some small bowel loops. BLADDER: The bladder is distended. PELVIC VISCERA: No suspicious abnormality ABDOMINAL WALL: No significant hernia is appreciated. LYMPHOVASCULAR STRUCTURES AND FLUID: There is no abdominal aorticaneurysm. The portal vein enhances. There is some swirling in themesentery but no associated fat stranding. VISUALIZED LOWER CHEST: The heart is mildly enlarged. MUSCULOSKELETAL: No acute or suspicious osseous abnormality. IMPRESSION: No acute abnormality. The urinary bladder is distended. There is extensivelow attenuation within the liver. There is no specific CT evidence of complication from acute pancreatitis.There is no biliary dilation or abscess. -------- FINAL REPORT -------- Dictated By: Mik Qiu Dictated Date: 03/03/2025 14:15 ET Assigned Physician: Mik Qiu Reviewed and Electronically Signed By: Mik Qiu Signed Date: 03/03/2025 14:26 ET Workstation ID: [id number] Transcribed By: Self Edit Transcribed Date: 03/03/2025 14:22 ET us Esau Bernstein MD [facility] [place] Final Res ult * Drug abuse screen 8a panel, urine (03/03/2025 12:03 PM EDT) Amphetamine Screen, Ur Negative Negative LAB CHEMISTRY METHOD 03/03/2025 2:10 PM EDT [facility] Comment:Certain OTC medicati ons containing ephedrine, phenylephrine, pseudoephedrine and phenylpropanolamine can cause false positive results. Barbiturate Screen, Ur Negative Negative LAB CHEMISTRY METHOD 03/03/2025 2:10 PM EDT [facility] Benzodiazepine Screen, Ur Negative Negative LAB CHEMISTRY METHOD 03/03/2025 2:10 PM EDT [facility] Cocaine Screen, Ur Negative Negative LAB CHEMISTRY METHOD 03/03/2025 2:10 PM EDT [facility] Opiate Screen, Ur Negative Negative LAB CHEMISTRY METHOD 03/03/2025 2:10 PM EDT [facility] Cannabinoid (THC) Screen, Ur Negative Negative LAB CHEMISTRY METHOD 03/03/2025 2:10 PM EDT [facility] Comment:Specimens from patie nts taking pantoprazole sodium (Protonix) have been shown to produce false positive results. Oxycodone Screen, Ur Negative Negative LAB CHEMISTRY METHOD 03/03/2025 2:10 PM EDT [facility] Fentanyl, Ur Negative Negative LAB CHEMISTRY METHOD 03/03/2025 2:10 PM EDT [facility] Urine Urine specimen obtained by clean catch procedure / Unknown Non-blood Collection / Unknown 03/03/2025 12:03 PM EDT 03/03/2025 12:40 PM EDT Narrative [facility] - 03/03/2025 2:10 PM EDT Assay cutoffs: Amphetamines 1000 ng/mL Barbiturates 200 ng/mL Benzodiazepines 200 ng/mL Cocaine 300 ng/mL Fentanyl 1 ng/mL Opiates 300 ng/mL Oxycodone 100 ng/mL THC 50 ng/mL Semi-quantitative assay for screening purposes only. Unconfirmed screening result should not be used for non-medical purposes. *ALTERNATE METHOD CONFIRMATION DONE UPON REQUEST ONLY* Esau Bernstein MD LAB URINE ORDERABLES Final Result [facility] [address] [place] [address], * XR Chest 1 View (03/03/2025 11:54 AM EDT) Anatomical Region Laterality Modality Body Radiographic Kyara ging 03/03/2025 11:5 7 AM EDT Impressions 03/03/2025 11:58 AM EDT No acute pulmonary disease. There is no subdiaphragmatic free air. Code 79734 -------- FINAL REPORT -------- Dictated By: Jaime Levine Dictated Date: 03/03/2025 11:57 ET Assigned Physician: Jaime Levine Reviewed and Electronically Signed By: Jaime Levine Signed Date: 03/03/2025 11:58 ET Workstation ID: [id number] Transcribed By: Self Edit Transcribed Date: 03/03/2025 11:57 ET Narrative 03/03/2025 11:58 AM EDT HISTORY: The patient is a 40-year-old male former smoker with abdominal pain. FINDINGS: Sitting AP portable radiographs of the chest, without previous for comparison, demonstrates normal appearance of the bony structures. The cardiac and mediastinal contours are within normal limits. The lungs and costophrenic angles are clear. There is no subdiaphragmatic free air. Procedure Note Jaime Levine MD - 03/03/2025 HISTORY: The patient is a 40-year-old male former smoker with abdominalpain. FINDINGS: Sitting AP portable radiographs of the chest, without previousfor comparison, demonstrates normal appearance of the bony structures. Thecardiac and mediastinal contours are within normal limits. The lungs andcostophrenic angles are clear. There is no subdiaphragmatic free air. IMPRESSION: No acute pulmonary disease. There is no subdiaphragmatic free air. Code 03154 -------- FINAL REPORT -------- Dictated By: Jaime Levine Dictated Date: 03/03/2025 11:57 ET Assigned Physician: Jaime Levine Reviewed and Electronically Signed By: Jaime Levine Signed Date: 03/03/2025 11:58 ET Workstation ID: [id number] Transcribed By: Self Edit Transcribed Date: 03/03/2025 11:57 ET us Esau Bernstein MD IMG XR PROCEDURES Final Res ult * Lipase (03/03/2025 10:45 AM EDT) [facility] Lipase 26 13 - 75 unit/L LAB CHEMISTRY METHOD 03/03/2025 11:38 AM EDT [facility] Blood Venous blood specimen / Unknown Venipuncture / Unknown 03/03/2025 10:45 AM EDT 03/03/2025 11:10 AM EDT us Esau Bernstein MD LAB BLOOD ORDERABLES Final Result [facility] [address] [place] [address], [place] [phone] * (ABNORMAL) Ethanol (03/03/2025 10:45 AM EDT) [facility] Ethanol Level 244(H) 0 - 10 mg/dL LAB CHEMISTRY METHOD 03/03/2025 11:38 AM EDT [facility] Blood Venous blood specimen / Unknown Venipuncture / Unknown 03/03/2025 10:45 AM EDT 03/03/2025 11:10 AM EDT us Esau Bernstein MD LAB BLOOD ORDERABLES Final Result [facility] [address] [place] [address], [place] [phone] * (ABNORMAL) Comprehensive metabolic panel (03/03/2025 10:45 AM EDT) [facility] Sodium 138 133 - 145 mmol/L LAB CHEMISTRY METHOD 03/03/2025 11:38 AM EDT [facility] Potassium 4.0 3.5 - 5.5 mmol/L LAB CHEMISTRY METHOD 03/03/2025 11:38 AM EDT [facility] Chloride 102 96 - 110 mmol/L LAB CHEMISTRY METHOD 03/03/2025 11:[address] [facility] CO2 28 21 - 32 mmol/L LAB CHEMISTRY METHOD 03/03/2025 11:[address] [facility] Anion Gap 8 3 - 11 LAB CHEMISTRY METHOD 03/03/2025 11:[address] [facility] Glucose 135(H) 70 - 100 mg/dL LAB CHEMISTRY METHOD 03/03/2025 11:[address] [facility] BUN 10 5 - 25 mg/dL LAB CHEMISTRY METHOD 03/03/2025 11:[address] [facility] Creatinine 0.78 0.70 - 1.30 mg/dL LAB CHEMISTRY METHOD 03/03/2025 11:[address] [facility] eGFR 117 >=60 mL/min/1. 73m2 LAB CHEMISTRY METHOD 03/03/2025 11:[address] [facility] Comment:Calculation based on the Chronic Kidney Disease Epidemiology Collaboration (CKD-EPI) equation refit without adjustment for race. BUN/Creatinine Ratio 12.8 LAB CHEMISTRY METHOD 03/03/2025 11:[address] [facility] Calcium 9.5 8.5 - 10.5 mg/dL LAB CHEMISTRY METHOD 03/03/2025 11:[address] [facility] AST (SGOT) 42 10 - 42 unit/L LAB CHEMISTRY METHOD 03/03/2025 11:[address] [facility] ALT (SGPT) 40 10 - 60 unit/L LAB CHEMISTRY METHOD 03/03/2025 11:[address] [facility] Alkaline Phosphatase 90 42 - 121 unit/L LAB CHEMISTRY METHOD 03/03/2025 11:[address] [facility] Total Protein 7.7 6.0 - 8.0 g/dL LAB CHEMISTRY METHOD 03/03/2025 11:[address] [facility] Albumin 4.0 3.2 - 5.0 g/dL LAB CHEMISTRY METHOD 03/03/2025 11:38 AM EDT [facility] Total Bilirubin 0.3 0.0 - 1.4 mg/dL LAB CHEMISTRY METHOD 03/03/2025 11:38 AM EDT [facility] Blood Venous blood specimen / Unknown Venipuncture / Unknown 03/03/2025 10:45 AM EDT 03/03/2025 11:10 AM EDT us Esau Bernstein MD LAB BLOOD ORDERABLES Final Result [facility] [address] [place] [address], [place] [phone] from Last 3 Months Insurance [facility] [employer] Advance Directives * Full Code - Default (Latest Code Status on File) Date Activated Date Inactivated Comments 03/03/2025 3:34 PM 03/04/2025 1:36 PM This is orde r is used when code status has not been discussed with the patient, or code status is otherwise unknown/unconfirmed To update the patient's code status, place a code status order. Do not modify or discontinue any currently active code status orders. Care Teams Concrete Pourer Relationship Specialty Start Date End Date Physician, No Pcp PCP - General 03/03/25
--- OUTSIDE RECORDS SUMMARY | 2025-05-25 10:31 | XMS_ITS | Clinical Summary ---
Author Organization [facility] Address [address] [place] [id number] Phone Care Team Providers Care Commercial Marketing Specialist Name Role Phone Robin Beatty DO Primary Care Provider [phone] Allergies No known active allergies Medications cyclobenzaprine (FLEXERIL) 10 MG tablet Take 1 tablet (10 mg total) by mouth 2 (two) times a day as needed. Do not mix with alcohol, do not drive or operate heavy machinery while taking. 20 tablet 0 Active Social History Tobacco Use Types Packs/Day Years [...] on file Sexual Orientation Not on file Last Filed Vital Signs Vital Sign Reading Time Taken Comments Blood Pressure 128/82 08/22/2019 11:32 AM EST Pulse 75 08/22/2019 11:18 AM EST Temperature 36.4 C (97.6 F) 08/22/2019 11:18 AM EST Respiratory Rate - - Oxygen Saturation 98% 08/22/2019 11:18 AM EST Inhaled Oxygen Concentration - - Weight 80.7 kg (178 lb) 08/22/2019 11:18 AM EST Height 175.3 cm (5' 9 ) 08/22/2019 11:18 AM EST Body Mass Index 26.29 08/22/2019 11:18 AM EST Plan of Treatment Health Maintenance Due Date Last Done Comments Adult Td,Tdap Booster 1987 LIPID PANEL 1987 DEPRESSION SCREENING 1999 SMOKING Hx and SMOKELESS TOB ACCO SCREENING 02/27/2000 HEPATITIS C SCREENING 2005 HIV ONE-TIME SCREENING (18-6 5 YEARS) 2005 PNEUMOCOCCAL VACCINES (0-49 years) (1 of 2 - PCV) 2006 INFLUENZA VACCINE (#1) 2025 COVID-19 VACCINE (1 - 2024-2 6 season) 2025 HEPATITIS A VACCINES Aged Out No long er eligible based on patient's age to complete this topic HIB VACCINES Aged Out No longer eligi ble based on patient's age to complete this topic MENINGOCOCCAL VACCINES (ACWY) Aged Out No longer eligible based on patient's age to complete this topic MENINGOCOCCAL VACCINES (B) Aged Out N o longer eligible based on patient's age to complete this topic Medical Devices Not on file Insurance [employer] [facility] [place] [employer] [place] [employer] Care Teams Commercial Marketing Specialist Relationship Specialty Start Date End Date Robin Beatty DO [email or web address] PCP - General Internal Medicine 08/22/19 Additional Source Comments The information contained in this document represents components of the legal health record. It is not the complete legal health record.[facility]
[2025-05-25 12:40] VITALS: BP 139/89; PULSE 102; RESP 18; TEMP 36.8; O2SAT 95
== END 2025-05-25 12:40 | disposition home or self-care (01) ==
PROVIDERS: Emergency Provider Emergency Medicine
DX: S83.92XA Sprain of unspecified site of left knee, initial encounter (principal); F10.10 Alcohol abuse, uncomplicated; X58.XXXA Exposure to other specified factors, initial encounter; Y93.51 Activity, roller skating (inline) and skateboarding; Y92.830 Public park as the place of occurrence of the external cause; Y99.9 Unspecified external cause status
CPT/HCPCS: 73564; 96372; 99284; J1885

== ENCOUNTER → 2025-05-25 10:02 | Outpatient (BNV) | payer OTHER, SELFPAY | PROVIDERS: Emergency Provider Emergency Medicine; Visit Provider Radiology Diagnostic Radiology | DX: S83.92XA Sprain of unspecified site of left knee, initial encounter (principal); V00.131A Fall from skateboard, initial encounter | CPT/HCPCS: 73564 ==